=== PATIENT | male | born 1945 | race Caucasian/White ===

== ENCOUNTER → 2016-08-04 | Outpatient (CLI) | payer BC ==
[~2016-08-04] MED LIST: ALLO300T2 PO; ATOR10TA88 PO; ATV5 PO; CLOP1TAB15 PO; CRG125 PO; EFF/375 PO; MELA3TAB PO; PANT40TA PO
[2016-08-04 09:45] LABS: BASO % 0.5 %; BASO ABS # 0.03 K/uL (0-0.2); COMPLETE YES; EOS % 4.6 %; HEMATOCRIT 40.4 % (42-52); IG% 0.9 %; LYMPH % 24.2 %; LYMPH ABS # 1.42 K/uL (1.2-3.4); MEAN CELL VOLUME 92.4 fL (80-100); MEAN CORPUSCULAR HEMOGLOBIN 32.3 pg (25-34); MEAN CORPUSCULAR HGB CONC 34.9 g/dl (32-36); MEAN PLATELET VOLUME 9.7 fL (7.4-10.4); MONO % 11.4 %; NEUT % 58.4 %; PLATELET COUNT 142 K/uL (130-400); RED BLOOD COUNT 4.37 M/uL (4.7-6.1); WHITE BLOOD COUNT 5.87 K/uL (4.8-10.8)
[2016-08-04 10:01] LABS: ALT/SGPT 30 U/L (12-78); BLOOD UREA NITROGEN 20 mg/dl (7-18); BUN/CREATININE RATIO 24.4 (10-20); C-REACTIVE PROTEIN < 0.29 mg/dl (0-0.29); CALCIUM 8.2 mg/dl (8.5-10.1); CARBON DIOXIDE 24 mmol/L (21-32); CHLORIDE 110 mmol/L (98-107); CHOLESTEROL 156 mg/dl (0-200); GLUCOSE 119 mg/dl (70-99); POTASSIUM 3.8 mmol/L (3.5-5.1); SODIUM 144 mmol/L (136-145); TRIGLYCERIDES 244 mg/dl (0-150); VERY LOW DENSITY LIPOPROT CALC 49 mg/dl
[2016-08-04 10:14] LABS: ESTIMATED AVERAGE GLUCOSE 111 mg/dl; HA1C FLAG Normal (Normal)
[2016-08-04 10:20] LABS: ALB/GLOB RATIO 0.9 (0.9-2); ALKALINE PHOSPHATASE 67 U/L (45-117); AST/SGOT 20 U/L (15-37); CHOLESTEROL/HDL RATIO 4.1; HDL CHOLESTEROL 38 mg/dl; LDL CHOLESTEROL CALCULATED 69 mg/dl
[2016-08-04 10:54] LABS: LYME DISEASE AB IGG NEG (NEG); LYME DISEASE AB IGM NEG (NEG)
--- NOTE | 2016-08-09 12:38 | CODING QUERY MEDICAL NECESSITY ---
SUPPORTING DIAGNOSIS NEEDED A supporting diagnosis is required for the test/procedure performed on this patient in order for us to be reimbursed by the patient's insurance. Please provide a supporting diagnosis for the following test/procedure listed below next to the test name along with your signature. *If there is no additional diagnosis for this patient that would support the following test/procedure please document that below next to the test/procedure. Test(s)/Procedure(s) that require a supporting diagnosis: * VITAMIN D 25-HYDROXY DIAGNOSIS: * VITAMIN B-12 LEVEL DIAGNOSIS: * FOLATE LEVEL DIAGNOSIS: * DOS: 08/04/16 Provider Signature: Date: Thank you Trisha Molina Health Information Management Once completed, please kindly fax back to [phone] For questions please call [phone]
== END | disposition home or self-care (01) ==
LOC: C.LAB 07:06
PROVIDERS: ATTEND Family Medicine
DX: R73.09 Other abnormal glucose (principal); R53.83 Other fatigue; D50.9 Iron deficiency anemia, unspecified; D51.9 Vitamin B12 deficiency anemia, unspecified; E55.9 Vitamin D deficiency, unspecified

== ENCOUNTER → 2017-02-10 | Outpatient (CLI) | payer BC ==
[2017-02-10 09:34] LABS: BASO % 0.7 %; BASO ABS # 0.05 K/uL (0-0.2); COMPLETE YES; EOS % 4.9 %; HEMATOCRIT 41.1 % (42-52); IG% 0.7 %; LYMPH % 19.1 %; LYMPH ABS # 1.29 K/uL (1.2-3.4); MEAN CELL VOLUME 94.3 fL (80-100); MEAN CORPUSCULAR HEMOGLOBIN 32.8 pg (25-34); MEAN CORPUSCULAR HGB CONC 34.8 g/dl (32-36); MEAN PLATELET VOLUME 9.8 fL (7.4-10.4); MONO % 10.2 %; NEUT % 64.4 %; PLATELET COUNT 152 K/uL (130-400); RED BLOOD COUNT 4.36 M/uL (4.7-6.1); WHITE BLOOD COUNT 6.77 K/uL (4.8-10.8)
[2017-02-10 09:52] LABS: ESTIMATED AVERAGE GLUCOSE 117 mg/dl; HA1C FLAG Normal (Normal)
[2017-02-10 10:02] LABS: ALT/SGPT 49 U/L (12-78); BLOOD UREA NITROGEN 17 mg/dl (7-18); CALCIUM 8.7 mg/dl (8.5-10.1); CARBON DIOXIDE 29 mmol/L (21-32); CHLORIDE 107 mmol/L (98-107); CHOLESTEROL 161 mg/dl (0-200); CREATININE 0.87 mg/dl (0.60-1.40); GLUCOSE 159 mg/dl (70-99); SODIUM 141 mmol/L (136-145); TRIGLYCERIDES 142 mg/dl (0-150); VERY LOW DENSITY LIPOPROT CALC 28 mg/dl
[2017-02-10 10:10] LABS: ALKALINE PHOSPHATASE 72 U/L (45-117); AST/SGOT 29 U/L (15-37); CHOLESTEROL/HDL RATIO 3.5; HDL CHOLESTEROL 46 mg/dl; LDL CHOLESTEROL CALCULATED 87 mg/dl; PHOSPHORUS 3.3 mg/dl (2.5-4.9)
[2017-02-13 14:39] LABS: C-REACTIVE PROT HIGHSEN 1.7 MG/L
--- NOTE | 2017-02-23 13:14 | CODING QUERY MEDICAL NECESSITY ---
CQSUPPORTING DIAGNOSIS NEEDED A supporting diagnosis is required for the test/procedure performed on this patient in order for us to be reimbursed by the patient's insurance. Please provide a supporting diagnosis for the following test/procedure listed below next to the test name along with your signature. *If there is no additional diagnosis for this patient that would support the following test/procedure please document that below next to the test/procedure. Test(s)/Procedure(s) that require a supporting diagnosis: DOS 02/10/17 C-REACTIVE PROTEIN HIGH SENSITIVITY TESTING THYROID TESTS Provider Signature: Date: Thank you Celeste Owens Health Information Management Once completed, please kindly fax back to [phone] For questions please call [phone]
== END | disposition home or self-care (01) ==
LOC: C.LAB 07:52
PROVIDERS: ATTEND Family Medicine
DX: R73.09 Other abnormal glucose (principal); E55.9 Vitamin D deficiency, unspecified; D51.9 Vitamin B12 deficiency anemia, unspecified; N40.0 Benign prostatic hyperplasia without lower urinary tract symptoms; I65.29 Occlusion and stenosis of unspecified carotid artery; R53.83 Other fatigue; I35.1 Nonrheumatic aortic (valve) insufficiency

== ENCOUNTER → 2017-08-10 | Outpatient (CLI) | payer BC ==
[~2017-08-10] MED LIST changes: +ATOR10TA82 PO; -ATOR10TA88 PO
[2017-08-10 09:33] LABS: BASO % 0.6 %; BASO ABS # 0.05 K/uL (0-0.2); EOS ABS # 0.32 K/uL (0-0.5); HEMATOCRIT 43.1 % (42-52); HEMOGLOBIN 15.2 g/dL (14.0-18.0); IG# 0.05 K/uL (0.00-0.02); LYMPH % 18.6 %; LYMPH ABS # 1.48 K/uL (1.2-3.4); MEAN CELL VOLUME 93.1 fL (80-100); MEAN CORPUSCULAR HEMOGLOBIN 32.8 pg (25-34); MEAN CORPUSCULAR HGB CONC 35.3 g/dl (32-36); MEAN PLATELET VOLUME 9.9 fL (7.4-10.4); MONO % 9.2 %; MONO ABS # 0.73 K/uL (0.11-0.59); NEUT ABS # 5.31 K/uL (1.4-6.5); PLATELET COUNT 191 K/uL (130-400); RED CELL DISTRIBUTION WIDTH CV 12.1 % (11.5-14.5); RED CELL DISTRIBUTION WIDTH SD 40.9 fL (36.4-46.3); WHITE BLOOD COUNT 7.94 K/uL (4.8-10.8)
[2017-08-10 09:59] LABS: ALBUMIN 4.2 gm/dl (3.4-5.0); ALKALINE PHOSPHATASE 73 U/L (45-117); ALT/SGPT 58 U/L (12-78); AST/SGOT 37 U/L (15-37); BLOOD UREA NITROGEN 23 mg/dl (7-18); CARBON DIOXIDE 27 mmol/L (21-32); CHOLESTEROL 151 mg/dl (0-200); CREATININE 0.99 mg/dl (0.60-1.40); GLUCOSE 136 mg/dl (70-99); SODIUM 139 mmol/L (136-145); TOTAL PROTEIN 7.4 gm/dl (6.4-8.2); TRANSFERRIN 234 mg/dl (200-360); URIC ACID 4.5 mg/dl (2.6-7.2)
[2017-08-10 10:13] LABS: LDL CHOLESTEROL CALCULATED 89 mg/dl
[2017-08-10 10:52] LABS: HEMOGLOBIN A1C 5.7 % (4.5-5.6)
== END | disposition home or self-care (01) ==
LOC: C.LAB 07:21
PROVIDERS: ATTEND Family Medicine
DX: E88.81 Metabolic syndrome and other insulin resistance (principal); E55.9 Vitamin D deficiency, unspecified; D51.9 Vitamin B12 deficiency anemia, unspecified; E78.9 Disorder of lipoprotein metabolism, unspecified; R53.83 Other fatigue

== ENCOUNTER → 2017-08-18 | Outpatient (CLI) | payer BC ==
--- NOTE | 2017-08-18 13:25 | DIAGNOSTIC IMAGING REPORT ---
CAROTID DOPPLER NECK ART CLINICAL HISTORY: 72 years-old Male with CAROTID ARTERY DISEASE. COMPARISON: Carotid Doppler study 04/18/2013 TECHNIQUE: Multiple real time sonographic images of the carotid bifurcations were obtained assessing ferrer scale, color Doppler and spectral wave form appearance FINDINGS: Blood pressure on the right measures 125/70. Blood pressure on the left measures 121/70. RIGHT INTERNAL CAROTID: The peak systolic velocity measured 45 cm/sec. The end diastolic velocity measured 13 cm/sec. The ICA to CCA ratio measured 1.2 which correlates with a stenosis of 0-50%. Mild mixed plaquing of the right carotid bulb. LEFT INTERNAL CAROTID: The peak systolic velocity measured 82 cm/sec. The end diastolic velocity measured 30 cm/sec. The ICA to CCA ratio measured 0.8 which correlates with a stenosis of 0-50%. Mild atherosclerosis of the left carotid bulb. There is normal antegrade vertebral flow bilaterally. IMPRESSION: 1. No hemodynamically significant stenosis. 2. Normal antegrade vertebral flow bilaterally. The above report was generated using voice recognition software. It may contain grammatical, syntax or spelling errors. Electronically signed by: Ean Larkin M.D. 08/18/2017 1:24 PM Dictated Date/Time: 08/18/2017 1:16 PM
== END | disposition home or self-care (01) ==
LOC: C.ULTR 11:59
PROVIDERS: ATTEND Family Medicine
DX: I65.29 Occlusion and stenosis of unspecified carotid artery (principal)

== ENCOUNTER 2019-05-18 02:44 | Inpatient (IN) ==
[2019-05-18] MEDS ORDERED: DICYCLOMINE HCL 10 MG/ML 2 ML AMP/VIAL IM ONE (03:13)
[2019-05-18] MEDS ORDERED: GI COCKTAIL ED USE PO ONE (03:13)
[2019-05-18 03:53] LABS: Basophils # (auto) 0.02 K/uL (0-0.2); Basophils % (auto) 0.2 %; Eosinophils # (auto) 0.32 K/uL (0-0.5); Eosinophils % (auto) 2.5 %; Hematocrit (blood only) 42.6 % (42-52); Hemoglobin 14.9 g/dL (14.0-18.0); Immature Granulocytes # (auto) 0.06 K/uL (0.00-0.02); Immature Granulocytes % (auto) 0.5 %; Lymphocytes # (auto) 1.12 K/uL (1.2-3.4); Lymphocytes % (auto) 8.7 %; Mean Corpuscular Hemoglobin 32.4 pg (25-34); Mean Corpuscular Volume 92.6 fL (80-100); Mean Platelet Volume 10.2 fL (7.4-10.4); Monocytes # (auto) 0.88 K/uL (0.11-0.59); Monocytes % (auto) 6.8 %; Neutrophils # (auto) 10.54 K/uL (1.4-6.5); Neutrophils % (auto) 81.3 %; Platelet Count 169 K/uL (130-400); RDW Coefficient of Variation 12.6 % (11.5-14.5); RDW Standard Deviation 42.6 fL (36.4-46.3); White Blood Count 12.94 K/uL (4.8-10.8)
--- NOTE | 2019-05-18 03:55 | Emergency Department Note ---
History of Present Illness General Chief Complaint: Abdominal Pain Stated Complaint: ABD PAIN LAST 4 HOURS, BLOATING History of Present Illness Maximum Pain Intensity: 7 This 73-year-old presents to the ER complaining of upper abdominal discomfort Location: Upper abdomen Quality: Uncomfortable Severity: Moderate Duration: Started tonight Timing: Started around 8 PM Context: Patient was concerned and came in Modifying factors: better with nothing; worse with activity Patient states he had a chicken steak for dinner and an hour or so later he developed the symptoms with 2 alcoholic drinks. No prior abdominal surgeries. He has moved his bowels today. Patient denies chest pain, dyspnea, fever, chills, vomiting, diarrhea. Patient states he does not really drink alcohol anymore. He states he used to drink heavily. No history of pancreatitis. Home Medications Home Medications Medication Instructions Recorded Confirmed Type allopurinol 300 mg tablet 300 mg PO DAILY #30 tab 01/10/19 05/18/19 Rx atorvastatin 10 mg tablet 10 mg PO DAILY #90 tab 01/10/19 05/18/19 Rx carvedilol 25 mg tablet 25 mg PO BID #60 tab 01/10/19 05/18/19 Rx clopidogrel 75 mg tablet 75 mg PO DAILY #30 tab 01/10/19 05/18/19 Rx finasteride 5 mg tablet 5 mg PO DAILY #30 tab 01/10/19 05/18/19 Rx lorazepam 0.5 mg tablet 0.5 mg PO Q8H PRN #30 tab 01/10/19 05/18/19 Rx losartan 25 mg tablet 25 mg PO DAILY #30 tab 01/10/19 05/18/19 Rx melatonin 3 mg capsule 3 mg PO HS PRN 01/10/19 05/18/19 History omeprazole 40 mg capsule,delayed 40 mg PO BID cap 01/10/19 05/18/19 History release tamsulosin 0.4 mg capsule 0.4 mg PO DAILY 01/10/19 05/18/19 History venlafaxine 37.5 mg 37.5 mg PO DAILY 01/10/19 05/18/19 History capsule,extended release 24 hr Allergies Allergy/AdvReac Type Severity Reaction Status Date / Time No Known Allergies Allergy Unverified 05/18/19 04:13 Past Med/Surg History Social History Preferred Language: Citizen Of [place] Feels Safe at Home: Yes Smoking Status: Never smoker Review of Systems A total of 10 systems reviewed and were otherwise negative Physical Exam Vital Signs: Vital Signs - 24 hr 05/18/19 02:48 05/18/19 04:29 Temperature 36.6 C Temperature Source Oral Pulse Rate 70 70 Pulse Rate from Sp O2 Sensor 70 Pulse Rhythm Regular Pulse Strength Normal Respiratory Rate 20 23 Respiratory Effort / Characteristics Non-Labored Sponta neous Respiratory Depth Normal Respiratory Patter n Regular Blood Pressure 176/82 H 161/79 H Blood Pressure Poornima n 113 113 Blood Pressure Pos ition Sitting Pulse Oximetry 97 95 Oxygen Delivery Me thod Room Air Room Air Sepsis Recent Feve r Within 48 Hours No Sepsis Action Take n by Nursing No Action Required Physical Exam: VITALS: Vitals are noted on the nurse's note and reviewed by myself. Vital signs stable. GENERAL: Pleasant male, in no acute distress, nondiaphoretic, well-developed well-nourished. SKIN: Capillary reflex less than 2 seconds. HEENT: Normocephalic. PERRLA. EOMI. Nares patent. Mucous membranes moist. Neck is supple without nuchal rigidity. HEART: Regular rate and rhythm LUNGS: Clear to auscultation bilaterally without wheezes, rales or rhonchi. No retractions or accessory muscle use. ABDOMEN: Positive bowel sounds x 4. Normal tympanic percussion. Soft, tender to palpation upper abdomen, without masses or organomegaly. José sign negative. No guarding or rebound tenderness. No CVA tenderness MUSCULOSKELETAL: No gross musculoskeletal defects. NEURO: Patient was alert and oriented to person place and time. Normal sensation to light and sharp touch. No focal neurological deficits. Course Administered Medications Ioversol (Optiray 320 100ml) 93 ml IV ONCE PRN PRN Reason: Interaction Checking Stop: 05/22/19 04:17 Last Admin: 05/18/19 04:19 Dose: 93 ml Documented by: [id number] Discontinued Medications Al Hydrox/Mg Hydrox/Simethicone () 1 dose PO ONE ONE Stop: 05/18/19 03:14 Last Admin: 05/18/19 04:01 Dose: 1 dose Documented by: [id number] Dicyclomine HCl (Bentyl) 20 mg IM NOW ONE Stop: 05/18/19 03:14 Last Admin: 05/18/19 04:01 Dose: 20 mg Documented by: [id number] Morphine Sulfate (Morphine Sulfate) 4 mg IV NOW STA Stop: 05/18/19 04:29 Last Admin: 05/18/19 04:58 Dose: 4 mg Documented by: [id number] Ondansetron HCl (Zofran) 4 mg IV NOW STA Stop: 05/18/19 04:29 Last Admin: 05/18/19 04:58 Dose: 4 mg Documented by: [id number] Medical Decision Making Medical Records Attestation: I reviewed the patient's medical records. Home Medications Current Medication List: was personally reviewed by me Laboratory Data Attestation: I reviewed the patient's lab results. Result diagrams: 05/18/19 03:38 05/18/19 03:38 Lab Results 05/18/19 05/18/19 05/18/19 Range/Units 03:38 03:38 03:50 WBC 12.94 H (4.8-10.8) K/uL RBC 4.60 L (4.7-6.1) M/uL Hgb 14.9 (14.0-18.0) g/dL POC Hgb 14.3 (14.0-18.0) g/dl Hct 42.6 (42-52) % POC Hct 42 (42-52) % MCV 92.6 (80-100) fL MCH 32.4 (25-34) pg MCHC 35.0 (32-36) g/dL RDW Std Deviation 42.6 (36.4-46.3) fL RDW Coeff of Naa 12.6 (11.5-14.5) % Plt Count 169 (130-400) K/uL MPV 10.2 (7.4-10.4) fL Immature Gran % (Auto) 0.5 % Neut % (Auto) 81.3 % Lymph % (Auto) 8.7 % Hendricks % (Auto) 6.8 % Eos % (Auto) 2.5 % Baso % (Auto) 0.2 % Immature Gran # (Auto) 0.06 H (0.00-0.02) K/uL Neut # (Auto) 10.54 H (1.4-6.5) K/uL Lymph # (Auto) 1.12 L (1.2-3.4) K/uL Hendricks # (Auto) 0.88 H (0.11-0.59) K/uL Eos # (Auto) 0.32 (0-0.5) K/uL Baso # (Auto) 0.02 (0-0.2) K/uL POC Sodium 138 (135-144) mEq/L Sodium 136 (136-145) mmol/L POC Potassium 5.0 (3.3-5.0) mEq/L Potassium (3.5-5.1) mmol/L POC Chloride 103 (101-112) mEq/L Chloride 106 (98-107) mmol/L Carbon Dioxide 28 (21-32) mmol/L POC Total CO2 30 (24-31) mEq/l Anion Gap 2.0 L (3-11) POC Anion Gap 11.0 L (16-25) mmol/L POC BUN 18 (7-18) mg/dl BUN 14 (7-18) mg/dl Creatinine 0.85 (0.6-1.4) mg/dl POC Creatinine 0.7 (0.6-1.3) mg/dl Est Cr Clr Drug Dosing 82.0 ml/min Est GFR ( Amer) 100.2 Est GFR (Non-Af Amer) 86.4 BUN/Creatinine Ratio 16.3 (10-20) Glucose 134 H (70-99) mg/dl POC Glucose (other) 141 H (70-99) mg/dl Calcium 9.0 (8.5-10.1) mg/dl POC Ioniz Calcium [place] 1.14 (1.12-1.32) mmol/l Total Bilirubin 0.4 (0.2-1) mg/dl AST (15-37) U/L ALT 24 (12-78) U/L Alkaline Phosphatase 79 (45-117) U/L Troponin I < 0.015 (0-0.045) ng/ml Total Protein 7.7 (6.4-8.2) gm/dl Albumin 3.7 (3.4-5.0) gm/dl Globulin 4.0 (2.5-4.0) gm/dl Albumin/Globulin Ratio 0.9 (0.9-2) Lipase 6222 H (73-393) U/L Imaging Data Attestation: I personally reviewed and interpreted this imaging study as follows: Blood Pressure Blood Pressure Findings: Elevated blood pressure Blood Pressure Disposition: Referred to patients primary care provider MDM Narrative Prior records/ancillary studies reviewed. Triage Nursing notes reviewed. Additional history obtained from family. The patient's history was concerning for abdominal pain. Differential diagnosis: Etiologies such as appendicitis, diverticulitis, PUD, biliary pathology, UTI, pancreatitis, obstruction, mesenteric ischemia, aortic pathology, infections, inflammatory bowel disease, renal colic, as well as others were entertained. Physical examination findings: As above. ER treatment provided: GI cocktail, IV fluids, morphine, Zofran On reassessment the patient felt better. Diagnostics interpreted by me: ECG: Ordered for upper abdominal pain EKG: Normal sinus, T wave inversions in anterior lateral leads, rate of 69, EKG compared to prior EKG from 2015 with no acute changes noted. Impression normal sinus rhythm with chronic T wave inversions in the anterolateral leads unchanged interpreted by myself I think arrhythmia is unlikely. EKG shows normal sinus rhythm with no interval abnormalities such as QT prolongation or WPW. There are no findings to suggest Brugada syndrome. Cardiac monitoring in the emergency department reveals no tachycardic or bradycardic dysrhythmia. Hypertrophic cardiomyopathy was considered but there are no clear historical elements pointing toward this. EKG is not suggestive. The QRS voltage is not extremely large and there are no suggestive Q waves. The labs revealed lipase of 6200, negative troponin Leukocytosis Stable creatinine Imaging studies: Chest x-ray with no acute consolidation, pneumothorax or free air per my interpretation CT ABDOMEN & PELVIS With Contrast: There is fat stranding along the body and tail of the pancreas consistent with acute pancreatitis. No pseudocyst or abscess is seen. There is fatty infiltration of the liver. No focal liver lesion is seen. There is diverticulosis of the lower left and sigmoid colon. No signs of acute diverticulitis. There is constipation with 6.1 cm of stool in the cecum and right colon. Radiologist: Sebastian Koch MD Consultation: A consultation was placed with the hospitalist, Dr. Koch. The case was discussed and diagnostics were reviewed. The patient was evaluated in the ER for further treatment. Exam and history seem consistent with pancreatitis. Medicine was consulted. Patient will be admitted. Patient did finally admit that he had 2-3 bottles of wine last night with his . This most likely contribute to his pancreatitis. By the evaluation outlined above emergent etiologies such as appendicitis, di verticulitis, PUD, biliary pathology, UTI, obstruction, mesenteric ischemia, aortic pathology, inflammatory bowel disease, renal colic, as well as others were deemed relatively unlikely. The pt informed about the findings as listed above. All questions were answered and pleased with the treatment. Case reviewed with my attending The chart was completed utilizing [employer] Speech voice recognition software. Grammatical errors, random word insertions, pronoun errors, and incomplete sentences are an occassional consequence of this system due to software limitations, ambient noise, and hardware issues. Any formal questions or concerns about the content, text, or information contained within the body of this dictation should be directly addressed to the physician product safety technical assistant for clarification. Impression & Plan Acute pancreatitis Discharge Plan Visit Data Chief Complaint: Abdominal Pain Stated Complaint: ABD PAIN LAST 4 HOURS, BLOATING ED Provider: June Jimenez ED Midlevel Provider: Monica Banerjee Discharge Problem: Acute pancreatitis Patient Disposition: Being Evaluated by Hospitalist Condition: Fair Forms Stand Alone Forms: Call Back Authorization, [facility] Prescriptions Prescriptions: No Action lorazepam [Ativan] 0.5 mg tablet 0.5 mg PO Q8H PRN (Reason: anxiety) Qty: 30 RF: 0 finasteride 5 mg tablet 5 mg PO DAILY Qty: 30 RF: 2 allopurinol 300 mg tablet 300 mg PO DAILY Qty: 30 RF: 2 carvedilol 25 mg tablet 25 mg PO BID Qty: 60 RF: 2 losartan 25 mg tablet 25 mg PO DAILY Qty: 30 RF: 2 tamsulosin 0.4 mg capsule 0.4 mg PO DAILY RF: 0 clopidogrel 75 mg tablet 75 mg PO DAILY Qty: 30 RF: 2 venlafaxine [Effexor XR] 37.5 mg capsule,extended release 24hr 37.5 mg PO DAILY RF: 0 melatonin 3 mg capsule 3 mg PO HS PRN (Reason: Sleep) RF: 0 omeprazole 40 mg capsule,delayed release(DR/EC) 40 mg PO BID RF: 0 atorvastatin 10 mg tablet 10 mg PO DAILY Qty: 90 RF: 1 Referrals Referrals: Luc Fajardo MD [Primary Care Provider] - Discharge Problem: Acute pancreatitis Qualifiers: Pancreatitis type: unspecified pancreatitis type Acute pancreatitis complication: unspecified Qualified Code(s): K85.90 - Acute pancreatitis without necrosis or infection, unspecified
[2019-05-18 04:05] LABS: iSTAT Creatinine 0.7 mg/dl (0.6-1.3); iSTAT Hemoglobin 14.3 g/dl (14.0-18.0); iSTAT Ionized Calcium 1.14 mmol/l (1.12-1.32)
[2019-05-18] MEDS ORDERED: IOVERSOL 100ml IV PRN (04:18)
[2019-05-18 04:25] LABS: Alanine Aminotransferase 24 U/L (12-78); Albumin Globulin Ratio 0.9 (0.9-2); Albumin Level 3.7 gm/dl (3.4-5.0); Alkaline Phosphatase 79 U/L (45-117); BUN Creatinine Ratio 16.3 (10-20); Bilirubin,Total 0.4 mg/dl (0.2-1); Blood Urea Nitrogen 14 mg/dl (7-18); Carbon Dioxide 28 mmol/L (21-32); Chloride 106 mmol/L (98-107); Est GFR (African American) 100.2; Est GFR (Non-African American) 86.4; Glucose 134 mg/dl (70-99); Lipase 6222 U/L (73-393); Sodium 136 mmol/L (136-145); Total Protein 7.7 gm/dl (6.4-8.2); Troponin I < 0.015 ng/ml (0-0.045)
[2019-05-18] MEDS ORDERED: MoRPHine SULFATE 4 MG/ML 1 ML CARP\\VIAL IV STA ×2 (04:28→06:41)
[2019-05-18] MEDS ORDERED: ONDANSETRON INJ 2 MG/ML 2 ML VIAL IV STA (04:28)
--- NOTE | 2019-05-18 05:18 | Emergency Department Note ---
ED Visit Note I saw this patient in conjunction with Ita Banerjee PA-C. I agree with her decision making and treatment plan. This is a 73-year-old male patient who presents to the emergency department with epigastric pain. On physical exam, the patient has reproducible discomfort with palpation in the epigastrium. He admits to drinking a moderate amount of wine last night after having not had any alcohol for almost 6 months. This may be the trigger to this patient's episode of pancreatitis. Patient has a significant elevation to his lipase as well as findings of pancreatitis on CT scan. The patient will be further evaluated by the [facility] Hospitalist. . : Acute pancreatitis Qualifiers: Pancreatitis type: unspecified pancreatitis type Acute pancreatitis complication: unspecified Qualified Code(s): K85.90 - Acute pancreatitis without necrosis or infection, unspecified
--- NOTE | 2019-05-18 06:21 | History & Physical Report ---
Date of Service May 18, 2019 Assessment & Plan (1) Acute pancreatitis: Ronni is a 73-year-old male with past medical history of diabetes not on anti-glycemic's, hyperlipidemia, anxiety, increased alcohol intake and carotid stenosis status post surgical intervention who presents with acute pancreatitis. Acute pancreatitis 2/2 acute alcohol and triglyceride intake CT shows acute fat stranding consistent with pancreatitis, no signs of necrosis Afebrile, low suspicion for infection. Defer antibiotics at this time Lipase 6222. Do not trend. LR 200 cc/h x 3L Pain control with morphine 2-4 mg IV as needed Lipid panel pending Ionized calcium normal Chest pain On further review, epigastric in origin No history of NV Last echo shows EF 70% on 01/2019, concentric LVH, grade 1 diastolic dysfunction Troponin negative No acute EKG changes Low suspicion for cardiac involvement, follow clinically Hypertension Carvedilol 25 mg Losartan 25 mg History of carotid endarterectomy Continue atorvastatin 10 mg daily Continue Plavix 75 mg daily Patient reports history of type 2 diabetes mellitus Last A1c 5.9% No prior to admission anti-glycemic's No insulin at this time BMP daily Anxiety Continue venlafaxine 37.5 mg daily GERD Convert omeprazole to pantoprazole 40 mg daily DVT prophylaxis: Heparin 5000 units every 12 CODE STATUS: Full code. He would want his to be his decision maker if he were unable to make decisions for himself. Disposition: Med/surg (2) Diabetes: (3) H/O carotid endarterectomy: (4) Chest pain: (5) Hypercholesteremia: (6) Hyperglycemia without ketosis: (7) Hypertension: History of Present Illness Chief Complaint: Acute pancreatitis Primary Care Provider: Luc Fajardo MD Ronni is a 73-year-old male with a past medical history of carotid stenosis status post bilateral and arterectomy, diabetes mellitus, hyperlipidemia, anxiety, and hypertension who presents with left upper quadrant pain consistent with acute pancreatitis. Ronni reports he was in his usual state of health until last night when he developed left upper quadrant pain with some radiation to his epigastrium. He reports that he had history of high alcohol intake, 3-4 drinks per night every day of the week up until stopping drinking 6 months ago. He reports he did not and has never had any signs of withdrawal including seizures, tremors, or hallucinations and was able to remain sober for the last 6 months without issue. He reports he went out this weekend with some friends and had a couple of bottles of wine, and then had left over [place] cheese sticks last night prior to the onset of his symptoms. He has had some nausea, but no vomiting. Denies diarrhea or constipation. He has not had fevers, chills, sweats. He denies shortness of breath. Endorses epigastrium pain, denies chest pain. He has no prior history of the symptoms. He has never had pancreatitis before. Medical history: As above, reviewed in chart. Denies history of gout and emphysema which were noted on his problem list. Surgical history: Bilateral carotid endarterectomy, reviewed. Denies history of appendectomy or cholecystectomy. Family history: History of stomach cancer in his father, gallstones in his mother. Denies history of NV, stroke, thyroid disease. Social history: Lives in [place] with his . No former or current tobacco use. Alcohol use as above. Denies recreational drug use. CODE STATUS: Full code. He would want his to be his surrogate decision maker if you are unable to make decisions for himself. Allergies Allergy/AdvReac Type Severity Reaction Status Date / Time No Known Allergies Allergy Unverified 05/18/19 04:13 Home Medications Home Medications Medication Instructions Recorded Confirmed Type allopurinol 300 mg tablet 300 mg PO DAILY #30 tab 01/10/19 05/18/19 Rx atorvastatin 10 mg tablet 10 mg PO DAILY #90 tab 01/10/19 05/18/19 Rx carvedilol 25 mg tablet 25 mg PO BID #60 tab 01/10/19 05/18/19 Rx clopidogrel 75 mg tablet 75 mg PO DAILY #30 tab 01/10/19 05/18/19 Rx finasteride 5 mg tablet 5 mg PO DAILY #30 tab 01/10/19 05/18/19 Rx lorazepam 0.5 mg tablet 0.5 mg PO Q8H PRN #30 tab 01/10/19 05/18/19 Rx losartan 25 mg tablet 25 mg PO DAILY #30 tab 01/10/19 05/18/19 Rx melatonin 3 mg capsule 3 mg PO HS PRN 01/10/19 05/18/19 History omeprazole 40 mg capsule,delayed 40 mg PO BID cap 08/15/19 12/21/19 History release tamsulosin 0.4 mg capsule 0.4 mg PO DAILY 01/10/19 05/18/19 History venlafaxine 37.5 mg 37.5 mg PO DAILY 01/10/19 05/18/19 History capsule,extended release 24 hr Past Med/Surg History Social History Preferred Language: Italian Feels Safe at Home: Yes Smoking Status: Never smoker Review of Systems Review of Systems: All systems reviewed & are unremarkable except as noted in HPI & below Physical Exam Physical Exam: General: A&Ox3. NAD. Cooperative. HEENT: Atraumatic, normocephalic. Pulm: CTAB A&P. -wheezes, -rales, -rhonchi. Symmetrical chest rise. No increase work of breathing. No respiratory distress. Cardiac: RRR, -mrg. Radial pulses intact and symmetrical. Abdominal: Softly distended. Tender to palpation in the left upper quadrant and epigastrium. No rebound tenderness. Nonrigid. No guarding. Tympanitic to percussion. Decreased bowel sounds. CN II: Visual velazquez are full to confrontation. Pupils are equal and react to light and accomidation. Visual acuity grossly intact. CN III, IV, : At primary gaze, there is no eye deviation. EoM intact without nystagmus. No visual field cuts. CN V: Facial sensation is intact to soft touch in all 3 divisions bilaterally. CN VII: No facial asymmetry, full strength to eyebrow raise, smile, eye close, and cheek puff. CN VII: Hearing is grossly intact. CN IX, X: Palate elevates symmetrically. Phonation is normal without dysarthria. CN XI: Head turning intact CN XII: Tongue protrudes midline. Sensory: Light touch, intact in upper and low extremities without deficit or asymmetry. Strength: RUE: Shoulder flexion/extension/internal rotation/external rotation, elbow flexion/extension, finger flexion/extension, yard attendant strength, interosseous 5/5 LUE: Shoulder flexion/extension/internal rotation/external rotation, elbow flexion/extension, finger flexion/extension, yard attendant strength, interosseous 5/5 RLE: Hip flexion, knee flexion/extension, ankle plantar flexion/dorsiflexion 5/5 LLE: Hip flexion, knee flexion/extension, ankle plantar flexion/dorsiflexion 5/5 Results & Data Vital Signs (Past 12 Hours) Vital Signs Temp Pulse Resp BP Pulse Ox 05/18/19 04:29 70 23 161/79 H 95 05/18/19 02:48 36.6 C 70 20 176/82 H 97 Supervising Physician Co-Signing Physician Notes Patient seen and examined, chart reviewed, case discussed with Dr. Coello and I agree with his assessment and plan as documented above. Briefly, patient is a 73-year-old male with history of hypertension, hyperlipidemia, anxiety presenting with acute pancreatitis. Inciting event presumably alcohol intake as patient drank fairly heavily prior to symptoms began. No prior history of pancreatitis. No medication changes On physical exam he is afebrile, hemodynamically stable, no acute distress Skinwarm, dry, intact HEENTnormocephalic/atraumatic, pupils equal round react to light, extraocular muscles intact, no jaundice or icterus, moist mucous membranes Heart+ S1/S2, regular, no murmurs/rubs/gallops LungsCTA anteriorly Abdomen+ bowel sounds, diminished throughout, soft, mildly distended with diffuse tenderness to palpation mostly in epigastric area Extremitieswarm, well-perfused, 2+ edema (chronic per patient and ) Labs and images reviewed. Significant for leukocytosis with WBC = 12.94, elevated lipase at 6222 CT abdomen with pancreatic inflammation Assessment/plan 73-year-old male presenting with acute pancreatitis Admit to medical floor, bowel rest, IV fluids, analgesic and antiemetics as needed Check lipid panel Repeat labs in a.m. Remainder of plan as above Resident Activity Tracking Resident Involvement: Resident Care Provided Care Provided: Adult Hospital Medicine (1) Acute pancreatitis Acute pancreatitis complication: unspecified Pancreatitis type: unspecified pancreatitis type Qualified Code(s): K85.90 - Acute pancreatitis without necrosis or infection, unspecified
[2019-05-18] MEDS ORDERED: PROMETHAZINE 12.5 MG/50.5 ML BAG IV STA (06:43)
--- NOTE | 2019-05-18 06:45 | Billing Data ---
Date of Service May 18, 2019 Coding Level of Care Code 22744 Initial Inpt Care Lvl 3
--- NOTE | 2019-05-18 06:58 | XRay Report ---
XR chest 1V portable CLINICAL HISTORY: 73 years-old Male presenting with Chest Pain. TECHNIQUE: Portable upright AP view of the chest was obtained. COMPARISON: 02/24/2009. FINDINGS: Cardiopericardial silhouette moderately enlarged as on prior exam. No focal opacity. No large effusio n or pneumothorax. Osseous structures normal. Upper abdomen normal. IMPRESSION: 1. Cardiomegaly. No other convincing evidence of acute cardiopulmonary disease. ACT 112: Negative or not required by law. Electronically signed by: Víctor Haji M.D. 05/18/2019 6:57 AM
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
[2019-05-18] MEDS ORDERED: ACETAMINOPHEN 325 MG TAB PO PRN (07:30)
[2019-05-18] MEDS ORDERED: LORazepam 0.5 MG TAB PO PRN (07:30)
[2019-05-18] MEDS ORDERED: MoRPHine SULFATE 4 MG/ML 1 ML CARP\\VIAL IV PRN (07:30)
[2019-05-18] MEDS ORDERED: ONDANSETRON INJ 2 MG/ML 2 ML VIAL IV PRN (07:30)
[2019-05-18] MEDS ORDERED: MoRPHine SULFATE 2 MG/ML CARP IV PRN (07:30)
[2019-05-18 08:26] LABS: Chol HDL Ratio 3; Cholesterol 149 mg/dl (0-200); HDL Cholesterol 50 mg/dl; LDL Cholesterol Calculated 70 mg/dl; Triglycerides 143 mg/dl (0-150); VLDL Cholesterol 29 mg/dl
[2019-05-18] MEDS: LACTATED RINGER'S 1,000 ML IV SCH ×3 (09:34→19:42)
[2019-05-18] MEDS: PANTOprazole 40 MG TAB PO SCH (11:00)
[2019-05-18] MEDS: carvediloL 25 MG TAB PO SCH ×2 (11:00→19:46)
[2019-05-18] MEDS: FINASTERIDE 5 MG TAB PO SCH (11:01)
[2019-05-18] MEDS: LOSARTAN POTASSIUM 25 MG TAB PO SCH (11:01)
[2019-05-18] MEDS: ATORVASTATIN 10 MG TAB PO SCH (11:02)
[2019-05-18] MEDS: VENLAFAXINE HCL XR 37.5 MG CAPXR PO SCH (11:02)
[2019-05-18] MEDS: TAMSULOSIN HCL 0.4 MG CAP PO SCH (11:02)
[2019-05-18] MEDS: HEPARIN SOD 5,000 UNIT/0.5 ML VIAL SQ SCH ×2 (11:03→19:42)
[2019-05-18] MEDS: POLYETHYLENE (MIRALAX) 17 GM PACK PO SCH ×2 (11:03→19:47)
[2019-05-18] MEDS: CLOPIDOGREL BISULFATE 75 MG TAB PO SCH (11:03)
--- NOTE | 2019-05-18 13:50 | Hospitalist Progress Note ---
Date of Service May 18, 2019 Assessment & Plan (1) Acute pancreatitis: Mr. Matt is a 73-year-old male with past medical history of diabetes not on anti-glycemic's, hyperlipidemia, anxiety, increased alcohol intake and carotid stenosis status post surgical intervention who presents with acute epigastric and abdominal pain. Acute pancreatitis -Patient had noted consumption of 10oz of wine and a ruth cheesesteak prior to symptoms. CT shows acute fat stranding consistent with pancreatitis, no signs of necrosis Afebrile, low suspicion for infection. Defer antibiotics at this time. Lipase 6222. LR 200 cc/h x 3L Pain control with morphine 2-4 mg IV as needed Lipid panel - Triglyceride 143, Chol 149, LDL 70, VLDL 29, HDL 50 Ionized calcium normal -Patient NPO at admission, diet advanced to clear liquids in the afternoon and if tolerating full liquids in AM tomorrow. Chest pain On further review, epigastric in origin No history of MA Last echo shows EF 70% on 01/2019, concentric LVH, grade 1 diastolic dysfunction Troponin negative No acute EKG changes Low suspicion for cardiac involvement, follow clinically Hypertension Carvedilol 25 mg Losartan 25 mg History of carotid endarterectomy Continue atorvastatin 10 mg daily Continue Plavix 75 mg daily Patient reports history of type 2 diabetes mellitus Last A1c 5.9% No prior to admission anti-glycemic's No insulin at this time BMP daily Anxiety Continue venlafaxine 37.5 mg daily GERD -Holding home omeprazole. -Pantoprazole 40mg. Gout -Continue Allopurinol BPH -Continue home finesteride -Continue home Tamsulosin FEN/GI - Clear liquids, LR 200cc/hr x3L DVT prophylaxis: Heparin 5000 units every 12 CODE STATUS: Full code. He would want his to be his decision maker if he were unable to make decisions for himself. Disposition: Med/surg (2) Diabetes: (3) H/O carotid endarterectomy: (4) Chest pain: (5) Hypercholesteremia: (6) Hyperglycemia without ketosis: (7) Hypertension: (8) Gout: (9) BPH (benign prostatic hyperplasia): Supervising Physician Co-Signing Physician Notes Resident Physician Supervision Note: I independently interviewed and examined the patient and verified the barreto history and physical, reviewed labs and image studies, discussed the case with the resident Dr. Selene and agree with the findings and care plan. Subjective Patient seen at the bedside this AM shortly after transfer up from the ED. Patient noted that he was already starting to feel significantly better and stated that his abdominal pain was currently a 3/10 and that he was no longer nauseous. 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 He states that the other night was the first drink he'd had since quitting cold turkey and that he only had two 5oz glasses of wine at that time. He states he never had pancreatic problems in the past. Review of Systems Constitutional: + fatigue; no fever, no chills and no weakness Eyes: no eye pain and no photophobia Ear, Nose, Mouth, Throat: no ear pain, no tinnitus and no dizziness Respiratory: no cough, no chest congestion and no dyspnea Cardiovascular: no chest pain, no dyspnea and no dyspnea on exertion Gastrointestinal: + abdominal pain; no nausea and no vomiting Genitourinary: no dysuria Musculoskeletal: no back pain Integumentary: no rash Physical Exam Constitutional: WD/WN, vitals as above Eyes: PERRL, conjunctivae normal, anicteric sclerae ENMT: external ear and nose normal, oropharynx normal Respiratory: normal respiratory effort, lungs clear to auscultation Cardiovascular: Rate/Rhythm: regular rate and regular rhythm Heart Sounds: + murmur (2/6) Gastrointestinal (Abdomen): Inspection/Auscultation: abdomen normal to inspection and normal bowel sounds; abdomen not distended Percussion/Palpation: + abdomen tender (TTP RUQ and epigastrum ) and abdomen soft; no guarding and abdomen not rigid Musculoskeletal: no cyanosis or clubbing, extremities motor strength 5/5 Skin: no rashes, warm and dry Psychiatric: A+Ox3, euthymic affect Results & Data Vital Signs (Past 12 Hours) Vital Signs Temp Pulse Resp BP BP Pulse Ox 05/18/19 07:24 36.5 C 18 175/76 H 93 05/18/19 06:35 75 23 172/90 H 95 05/18/19 05:00 75 22 180/87 H 96 05/18/19 04:57 78 23 191/86 H 97 05/18/19 04:29 70 23 161/79 H 95 05/18/19 02:48 36.6 C 70 20 176/82 H 97 Laboratory Results Abnormal lab results 05/18/19 05/18/19 05/18/19 Range/Units 03:38 03:38 03:50 WBC 12.94 H (4.8-10.8) K/uL RBC 4.60 L (4.7-6.1) M/uL Immature Gran # (Auto) 0.06 H (0.00-0.02) K/uL Neut # (Auto) 10.54 H (1.4-6.5) K/uL Lymph # (Auto) 1.12 L (1.2-3.4) K/uL Alpine # (Auto) 0.88 H (0.11-0.59) K/uL Anion Gap 2.0 L (3-11) POC Anion Gap 11.0 L (16-25) mmol/L Glucose 134 H (70-99) mg/dl POC Glucose (other) 141 H (70-99) mg/dl Lipase 6222 H (73-393) U/L Medications Administered Current Inpatient Medications Acetaminophen (Tylenol) 650 mg PO Q4H PRN PRN Reason: pain/fever Stop: 06/17/19 07:29 Atorvastatin Calcium (Lipitor) 10 mg PO DAILY [facility] Stop: 06/17/19 08:59 Last Admin: 05/18/19 11:02 Dose: 10 mg Documented by: Carvedilol (Coreg) 25 mg PO BID AKILAH Stop: 06/17/19 08:59 Last Admin: 05/18/19 11:00 Dose: 25 mg Documented by: Clopidogrel Bisulfate (Plavix) 75 mg PO DAILY [facility] Stop: 06/17/19 08:59 Last Admin: 05/18/19 11:03 Dose: 75 mg Documented by: Finasteride (Proscar) 5 mg PO DAILY [facility] Stop: 06/17/19 08:59 Last Admin: 05/18/19 11:01 Dose: 5 mg Documented by: Heparin Sodium (Porcine) (Heparin Sodium (Porcine)) 5,000 units SQ Q12 AKILAH Stop: 06/17/19 08:59 Last Admin: 05/18/19 11:03 Dose: Not Given Documented by: Lactated Ringer's (Lr) 1,000 mls @ 200 mls/hr IV .Q5H AKILAH Stop: 05/18/19 22:29 Last Admin: 05/18/19 15:00 Dose: 200 mls/hr Documented by: Ioversol (Optiray 320 100ml) 93 ml IV ONCE PRN PRN Reason: Interaction Checking Stop: 05/22/19 04:17 Last Admin: 05/18/19 04:19 Dose: 93 ml Documented by: Lorazepam (Ativan) 0.5 mg PO Q8H PRN PRN Reason: anxiety Stop: 06/17/19 07:29 Losartan Potassium (Cozaar) 25 mg PO DAILY [facility] Stop: 06/17/19 08:59 Last Admin: 05/18/19 11:01 Dose: 25 mg Documented by: Morphine Sulfate (Morphine Sulfate) 2 mg IV Q2H PRN PRN Reason: Moderate Pain (4,5,6) Stop: 06/01/19 07:29 Morphine Sulfate (Morphine Sulfate) 4 mg IV Q2H PRN PRN Reason: Severe Pain (7,8,9,10) Stop: 06/01/19 07:29 Ondansetron HCl (Zofran) 4 mg IV Q6H PRN PRN Reason: Nausea Stop: 06/17/19 07:29 Pantoprazole Sodium (Protonix) 40 mg PO DAILY [facility] Stop: 06/17/19 08:59 Last Admin: 05/18/19 11:00 Dose: 40 mg Documented by: Polyethylene Glycol (Miralax Powder Packet) 17 gm PO BID [facility] Stop: 06/17/19 08:59 Last Admin: 05/18/19 11:03 Dose: 17 gm Documented by: Tamsulosin HCl (Flomax) 0.4 mg PO DAILY [facility] Stop: 06/17/19 08:59 Last Admin: 05/18/19 11:02 Dose: 0.4 mg Documented by: Venlafaxine HCl (Effexor Extended Release) 37.5 mg PO DAILY [facility] Stop: 06/17/19 08:59 Last Admin: 05/18/19 11:02 Dose: 37.5 mg Documented by: Resident Activity Tracking Resident Involvement: Resident Care Provided Care Provided: Adult Hospital Medicine (1) Acute pancreatitis Acute pancreatitis complication: unspecified Pancreatitis type: unspecified pancreatitis type Qualified Code(s): K85.90 - Acute pancreatitis without necrosis or infection, unspecified
[2019-05-19 07:35] LABS: BUN Creatinine Ratio 9.3 (10-20); Calcium 8.9 mg/dl (8.5-10.1); Creatinine Clr Calc Pharmacy 99.4 ml/min; Est GFR (African American) 108.5; Est GFR (Non-African American) 93.6; Potassium 3.7 mmol/L (3.5-5.1)
[2019-05-19] MEDS ORDERED: allopurinoL 300 MG TAB PO SCH (09:00)
[2019-05-19] MEDS: PANTOprazole 40 MG TAB PO SCH (09:12)
[2019-05-19] MEDS: CLOPIDOGREL BISULFATE 75 MG TAB PO SCH (09:12)
[2019-05-19] MEDS: FINASTERIDE 5 MG TAB PO SCH (09:13)
[2019-05-19] MEDS: LOSARTAN POTASSIUM 25 MG TAB PO SCH (09:13)
[2019-05-19] MEDS: TAMSULOSIN HCL 0.4 MG CAP PO SCH (09:13)
[2019-05-19] MEDS: VENLAFAXINE HCL XR 37.5 MG CAPXR PO SCH (09:13)
[2019-05-19] MEDS: POLYETHYLENE (MIRALAX) 17 GM PACK PO SCH (09:14)
[2019-05-19] MEDS: carvediloL 25 MG TAB PO SCH (09:14)
[2019-05-19] MEDS: ATORVASTATIN 10 MG TAB PO SCH (09:14)
[2019-05-19] MEDS: HEPARIN SOD 5,000 UNIT/0.5 ML VIAL SQ SCH (09:15)
--- NOTE | 2019-05-19 10:55 | Discharge Summary ---
Date of Service May 19, 2019 Admission HPI Per Admitting Provider Ronni is a 73-year-old male with a past medical history of carotid stenosis status post bilateral and arterectomy, diabetes mellitus, hyperlipidemia, anxiety, and hypertension who presents with left upper quadrant pain consistent with acute pancreatitis. Ronni reports he was in his usual state of health until last night when he developed left upper quadrant pain with some radiation to his epigastrium. He reports that he had history of high alcohol intake, 3-4 drinks per night every day of the week up until stopping drinking 6 months ago. He reports he did not and has never had any signs of withdrawal including seizures, tremors, or hallucinations and was able to remain sober for the last 6 months without issue. He reports he went out this weekend with some friends and had a couple of bottles of wine, and then had left over Ruth cheese sticks last night prior to the onset of his symptoms. He has had some nausea, but no vomiting. Denies diarrhea or constipation. He has not had fevers, chills, sweats. He denies shortness of breath. Endorses epigastrium pain, denies chest pain. He has no prior history of the symptoms. He has never had pancreatitis before. Medical history: As above, reviewed in chart. Denies history of gout and emphysema which were noted on his problem list. Surgical history: Bilateral carotid endarterectomy, reviewed. Denies history of appendectomy or cholecystectomy. Family history: History of stomach cancer in his father, gallstones in his mother. Denies history of NV, stroke, thyroid disease. Social history: Lives in [place] with his . No former or current tobacco use. Alcohol use as above. Denies recreational drug use. CODE STATUS: Full code. He would want his to be his surrogate decision maker if you are unable to make decisions for himself. Admission Exam Per Admitting Provider General: A&Ox3. NAD. Cooperative. HEENT: Atraumatic, normocephalic. Pulm: CTAB A&P. -wheezes, -rales, -rhonchi. Symmetrical chest rise. No increase work of breathing. No respiratory distress. Cardiac: RRR, -mrg. Radial pulses intact and symmetrical. Abdominal: Softly distended. Tender to palpation in the left upper quadrant and epigastrium. No rebound tenderness. Nonrigid. No guarding. Tympanitic to percussion. Decreased bowel sounds. CN II: Visual velazquez are full to confrontation. Pupils are equal and react to light and accomidation. Visual acuity grossly intact. CN III, IV, : At primary gaze, there is no eye deviation. EoM intact without nystagmus. No visual field cuts. CN V: Facial sensation is intact to soft touch in all 3 divisions bilaterally. CN VII: No facial asymmetry, full strength to eyebrow raise, smile, eye close, and cheek puff. CN VII: Hearing is grossly intact. CN IX, X: Palate elevates symmetrically. Phonation is normal without dysarthria. CN XI: Head turning intact CN XII: Tongue protrudes midline. Sensory: Light touch, intact in upper and low extremities without deficit or asymmetry. Strength: RUE: Shoulder flexion/extension/internal rotation/external rotation, elbow flexion/extension, finger flexion/extension, hvac technician residential strength, interosseous 5/5 LUE: Shoulder flexion/extension/internal rotation/external rotation, elbow flexion/extension, finger flexion/extension, hvac technician residential strength, interosseous 5/5 RLE: Hip flexion, knee flexion/extension, ankle plantar flexion/dorsiflexion 5/5 LLE: Hip flexion, knee flexion/extension, ankle plantar flexion/dorsiflexion 5/5 Principal Diagnosis Acute mild pancreatitis Discharge Exam Constitutional WD/WN, vitals as above Eyes PERRL, conjunctivae normal, anicteric sclerae ENMT external ear and nose normal, oropharynx normal Respiratory normal respiratory effort, lungs clear to auscultation Cardiovascular Rate/Rhythm: regular rate and regular rhythm Heart Sounds: + murmur (2/6) Gastrointestinal (Abdomen) Inspection/Auscultation: abdomen normal to inspection and normal bowel sounds; abdomen not distended Percussion/Palpation: + abdomen tender (Minimal TTP in RUQ and RLQ) and abdomen soft; no guarding and abdomen not rigid Musculoskeletal no cyanosis or clubbing, extremities motor strength 5/5 Skin no rashes, warm and dry Psychiatric A+Ox3, euthymic affect Discharge Data Allergies Allergy/AdvReac Type Severity Reaction Status Date / Time No Known Allergies Allergy Unverified 05/18/19 04:13 Consultations 05/18/19 05:10 ED Decision to Admit Stat Ordered Studies 05/18/19 03:13 CT abd pelvis IV con only Urgent Hospital Course (1) Acute pancreatitis: Mr. Matt is a 73-year-old male with past medical history of diabetes not on anti-glycemic's, hyperlipidemia, anxiety, increased alcohol intake and carotid stenosis status post surgical intervention who presents with acute epigastric and abdominal pain. Acute pancreatitis -Patient had noted consumption of 10oz of wine and a ruth cheesesteak prior to symptoms. CT showed acute fat stranding consistent with pancreatitis without signs of necrosis. As patient remained afebrile there was low suspicion for infection. Antibiotics were deferred during his stay. Lipase 6222 on admission. Lipid panel - Triglyceride 143, Chol 149, LDL 70, VLDL 29, HDL 50 Ionized calcium was normal. Patient was made NPO, LR 200 cc/h x 3L, Pain control with morphine 2-4 mg IV as needed were ordered. -Patients diet was then advanced to clear liquids followed by full liquids and a regular diet to which he tolerated well. -His pain had resolved and he was able to take PO as before and as such, was discharged home. Chest pain No history of NV Last echo shows EF 70% on 01/2019, concentric LVH, grade 1 diastolic dysfunction Troponin's drawn were negative No acute EKG changes were noted. Was found to be epigastric pain on further work up, resolved. Hypertension Continued home Carvedilol 25 mg Continued home Losartan 25 mg History of carotid endarterectomy Continued home atorvastatin 10 mg daily Continued home Plavix 75 mg daily Reported history of type 2 diabetes mellitus Last A1c 5.9% No prior to admission anti-glycemic's were noted. No new medications or insulin were initiated during his stay. Anxiety Continued home venlafaxine 37.5 mg daily GERD -Held home omeprazole, to be continued upon discharge. -Pantoprazole 40mg QD while inpatient. Gout -Continued home Allopurinol BPH -Continued home finesteride -Continued home Tamsulosin FEN/GI - Regular Diet DVT prophylaxis: Heparin 5000 units every 12 while inpatient. CODE STATUS: Full code. He would want his to be his decision maker if he were unable to make decisions for himself. Disposition: Discharge Home. (2) Diabetes: (3) H/O carotid endarterectomy: (4) Chest pain: (5) Hypercholesteremia: (6) Hyperglycemia without ketosis: (7) Hypertension: (8) Gout: (9) BPH (benign prostatic hyperplasia): Total Time Total Time Spent Total Time Spent (In Minutes): see attending attestation Discharge Plan Discharge Items Patient Disposition: Home - Self-Care Reason For Visit: ACUTE PANCREATITIS Discharge Diagnosis: Acute Mild Pancreatitis Condition on Discharge: Fair Activity: Resume your previous activity Non-emergency contact: Primary Care Provider Call non-emergency contact if: your symptoms worsen Follow-up/Referrals: Luc Fajardo MD [Primary Care Provider] - Diet: Carb Consistent or DM2 Addtl Attending Provider Instructions: Mr. Matt, Manish were seen and evaluated at [facility] from 05/18/19 to 05/19/19 for an initial chief complaint of abdominal left upper quadrant pain and epigastric pain. CT imaging of your abdomen revealed inflammation and swelling around your pancreas, consistent with the concern for Pancreatitis. Your lipase level (a lab marker for the pancreas) was also elevated at 6222, again consistent with a concern for Pancreatitis. You were put on a nothing per oral diet, your pain and nausea were controlled with medications, and you were well hydrated with IV fluids. Your diet was advanced and after tolerating regular food well, are being discharged. -Please follow up with your PCP within the next 1-2 weeks. -If your symptoms return or worsen, please call your PCP or return to the ED for evaluation. Pending Studies at Discharge: No Stand-Alone Forms: Call Back Authorization, My [facility], Smoking Cessation Medications and DC Order Prescriptions: Continued lorazepam [Ativan] 0.5 mg tablet 0.5 mg PO Q8H PRN (Reason: anxiety) Qty: 30 RF: 0 finasteride 5 mg tablet 5 mg PO DAILY Qty: 30 RF: 2 allopurinol 300 mg tablet 300 mg PO DAILY Qty: 30 RF: 2 carvedilol 25 mg tablet 25 mg PO BID Qty: 60 RF: 2 losartan 25 mg tablet 25 mg PO DAILY Qty: 30 RF: 2 tamsulosin 0.4 mg capsule 0.4 mg PO DAILY RF: 0 clopidogrel 75 mg tablet 75 mg PO DAILY Qty: 30 RF: 2 venlafaxine [Effexor XR] 37.5 mg capsule,extended release 24hr 37.5 mg PO DAILY RF: 0 melatonin 3 mg capsule 3 mg PO HS PRN (Reason: Sleep) RF: 0 omeprazole 40 mg capsule,delayed release(DR/EC) 40 mg PO BID RF: 0 atorvastatin 10 mg tablet 10 mg PO DAILY Qty: 90 RF: 1 Discharge Orders: Discharge Order (Routine); Ordered 05/19/19 Ordered By: Michael Morton Admission Data Admit Date/Time: 05/18/19 06:25 Attending Provider: Tracey Armendariz Admit Provider: Víctor Coello Primary Care Provider: Luc Fajardo Other Providers: Bethanie Koch Other Interventions: Discharge Summary Assessment (RN) Last Done: 05/19/19 13:00 DC Date/Time DO NOT enter until pt leaves facility: 05/19/19 13:59 Supervising Physician Co-Signing Physician Notes Resident Physician Supervision Note: I independently interviewed and examined the patient and verified the barreto history and physical, reviewed labs and image studies, discussed the case with the resident Dr. Morton and agree with the findings and care plan. Resident Activity Tracking Resident Involvement: Resident Care Provided Care Provided: Adult Hospital Medicine
== END 2019-05-19 13:59 | disposition home or self-care (01) | DRG 440 ==
LOC: ED 02:44 → SUATTDRO 06:25 → 2W 06:25

== ENCOUNTER 2020-01-08 16:50 | Inpatient (IN) ==
--- NOTE | 2020-01-08 18:19 | XRay Report ---
XR chest 1V portable HISTORY: 74 years-old Male chest pain . Atypical chest pain COMPARISON: Chest radiograph 05/18/2019 TECHNIQUE: Portable AP view of the chest FINDINGS: Unchanged cardiomegaly. No pneumothorax, pleural effusion, airspace consolidation or overt pulmonary edema. Bones of the chest appear grossly intact. IMPRESSION: No acute process. ACT 112: Negative or not required by law. The above report was generated using voice recognition software. It may contain grammatical, syntax o r spelling errors. Electronically signed by: Ean Larkin M.D. 01/08/2020 6:17 PM
[2020-01-08] MEDS ORDERED: SODIUM CHLORIDE 0.9% 1000ML 500 ML IV ONE (18:25)
--- NOTE | 2020-01-08 18:31 | Emergency Department Note ---
Impression & Plan Near syncope, Anemia, Weakness, Acute GI bleeding ED Provider Note NAME: HARRIS RUIZ AGE: 74 SEX: M : 1945 ARRIVES VIA: Walk-In INFORMANT: [Patient][family] ED PROVIDER(S): [Tato Maurice MD] CHIEF COMPLAINT: Chest pain, dizzy HISTORY OF PRESENT ILLNESS: The patient is a 74-year-old male who presents to the ED with lightheadedness, dizziness and upper sternal chest pain. The patient states that he had an endoscopy and colonoscopy yesterday. Things went well. Today, he began having the above-mentioned symptoms. He describes the chest pain as a 10/10 and the pain radiates to the back. No shortness of breath, no nausea or sweating. He has not suffered trauma. There has been no fever, chills, cough or congestion. The patient notices the lightheadedness and dizziness with standing and movement. He feels like he may faint. The patient recently has been told he was anemic. He has had some iron transfusions. He had the endoscopy and colonoscopy to look for potential bleeding source. REVIEW OF SYSTEMS: See HPI for pertinent positives and negatives. A total of ten systems were reviewed and were otherwise negative. PMHx/PSHx: See Below SOCIAL HISTORY: See Below. PHYSICAL EXAM: GENERAL: Patient is in no acute distress. HEENT: No acute trauma, normocephalic atraumatic, mucous membranes moist, no nasal congestion, no scleral icterus. NECK: No stridor, no adenopathy, no meningismus, trachea is midline. LUNGS: Clear to auscultation bilaterally, no wheeze, no rhonchi, breath sounds equal. HEART: 3/6 systolic murmur, regular rate and rhythm. Chest: Nontender chest wall. ABDOMEN: Soft, nontender, bowel sounds positive, no hernias, no peritonitis. EXTREMITIES: No cyanosis, moderate bilateral pedal edema, full range of motion of all the joints without pain or difficulty, no signs for acute trauma. NEUROLOGIC: Oriented x 3, no acute motor or sensory deficits, no focal weakness. SKIN: No rash, no jaundice, no diaphoresis. Pale. DIFFERENTIAL DIAGNOSIS: EMERGENCY DEPARTMENT COURSE/PROCEDURES: ECG: Indication was chest pain. The ECG shows a sinus rhythm with some PACs. The rate is 84. There are inverted T waves in the anterior and lateral leads. The QTc is 493. There is no ST elevation. Compared to an ECG from 18 May 2019, there is no significant change. Continuous Cardiac Monitoring: An order was placed for continuous cardiac monitoring. The monitor shows a rate of 92 with sinus rhythm with some PACs. Critical Care Note: I have personally spent greater than 38 minutes of critical care time in the direct management of this patient. This includes bedside care, interpretation of diagnostic studies, and testing, discussion with consultants, patient, and family members, and other required patient management activities. This 38 minutes is in excess of all separately billable procedures. MEDICAL DECISION MAKING: There is no leukocytosis. The patient is anemic with a hemoglobin just under 7. There is a normal platelet count. No concerning coagulopathy. No kidney failure or significant electrolyte abnormality. There is a mild elevation to the cardiac troponin, likely consistent with mismatch or possibly cardiac injury. ECG showed a sinus rhythm, there were some T wave changes but no change compared to previous ECGs. No liver enzyme elevation. No evidence for pancreatitis. Blood type was O+. Chest x-ray did not show any evidence for pneumonia, free air or pneumothorax. On exam, the patient seemed quite pale and his blood pressure was initially somewhat low. The patient was given IV saline, 500 cc. Because of the low hemoglobin, he was ordered for 2 units of packed red blood cells, 1 unit was to be transfused while here in the ED. The patient did sign consent for the transfusion. The patient is in need of a hospital stay. He is suffering from a GI bleed. He will need further resuscitation. He may require repeat endoscopy/colonoscopy. The patient is aware of his findings, his blood pressure is improved with our treatment. I did speak to case management. The on-call hospitalist was consulted. Past Med/Surg History Medical History Anemia IRON INFUSIONS X 2-11/2019 Anxiety Cardiac murmur FOR YRS-F/U DR REDDY Depression Diabetes mellitus, type 2 DIET MANAGED Enlarged prostate GERD (gastroesophageal reflux disease) UNDER CONTROL Hiatal hernia High cholesterol Hypertension Kidney stones SOBOE (shortness of breath on exertion) INACTIVE Surgical History H/O carotid endarterectomy R/L History of colonoscopy X 2-3 Hx of tonsillectomy Family History Father Liver cancer Social History Smoking Status: Unknown if ever smoked Second Hand Exposure: Yes (FATHER SMOKED); Hx Alcohol Use: No Hx Substance Use: No Preferred Language: British Communication Ability: Effective Farmworker Required: No Beliefs That Will Affect Care: None Current Living Situation: Spouse Other Information That Helps Us Care for You: No Feels Safe at Home: Yes Safety Concerns: Feels Safe At This Time Allergies Allergies Allergy/AdvReac Type Severity Reaction Status Date / Time No Known Allergies Allergy Verified 01/08/20 20:31 Home Meds Home Medications Medication Instructions Recorded Confirmed melatonin 3 mg capsule 3 mg PO HS 01/10/19 01/08/20 omeprazole 40 mg capsule,delayed 40 mg PO BID cap 01/10/19 01/08/20 release allopurinol [Zyloprim] 300 mg PO QAM 11/20/19 01/08/20 lorazepam [Ativan] 0.5 - 1 mg PO DAILY PRN 11/25/19 01/08/20 Multivitamin 50 Plus 1 tab PO QAM 01/02/20 01/08/20 atorvastatin 10 mg PO QAM 01/02/20 01/08/20 carvedilol 12.5 mg PO BID 01/02/20 01/08/20 cholecalciferol (vitamin D3) 25 mcg PO QAM 01/02/20 01/08/20 [Vitamin D3] clopidogrel 75 mg PO QAM 01/02/20 01/08/20 finasteride 5 mg PO QAM 01/02/20 01/08/20 losartan 25 mg PO QPM 01/02/20 01/08/20 saw palmetto 400 mg PO QAM 01/02/20 01/08/20 tamsulosin 0.4 mg PO HS 01/08/20 01/08/20 ursodiol 500 mg PO HS 01/08/20 01/08/20 venlafaxine 75 mg PO QAM 01/08/20 01/08/20 Results & Data (ED) Vital Signs Vital Signs - 24 hr 01/08/20 16:54 01/08/20 18:31 01/08/20 18:33 Temperature 36.8 C Temperature Source Oral Pulse Rate 73 82 79 Pulse Rate from SpO2 Sensor 70 77 Respiratory Rate 16 24 25 H Respiratory Effort / Characteristics Non-Labored Spontaneous Respiratory Depth Normal Blood Pressure 107/58 L 127/75 Blood Pressure Mean 74 92 Blood Pressure Position Sitting Pulse Oximetry 98 98 99 Oxygen Delivery Method Room Air Sepsis Recent Fever Within 48 Hours No Sepsis New/Unexplained Change in Mental Status No Sepsis Action Taken by Nursing No Action Required 01/08/20 19:00 01/08/20 19:01 01/08/20 19:19 Temperature Temperature Source Pulse Rate 85 84 85 Pulse Rate from SpO2 Sensor 81 84 82 Respiratory Rate 21 24 24 Respiratory Effort / Characteristics Respiratory Depth Blood Pressure 129/75 134/75 Blood Pressure Mean 97 107 Blood Pressure Position Pulse Oximetry 97 97 98 Oxygen Delivery Method Sepsis Recent Fever Within 48 Hours Sepsis New/Unexplained Change in Mental Status Sepsis Action Taken by Nursing 01/08/20 19:20 01/08/20 19:30 01/08/20 19:31 Temperature Temperature Source Pulse Rate 86 86 87 Pulse Rate from SpO2 Sensor 86 86 83 Respiratory Rate 23 22 23 Respiratory Effort / Characteristics Respiratory Depth Blood Pressure 139/70 Blood Pressure Mean 104 Blood Pressure Position Pulse Oximetry 99 98 99 Oxygen Delivery Method Sepsis Recent Fever Within 48 Hours Sepsis New/Unexplained Change in Mental Status Sepsis Action Taken by Nursing 01/08/20 19:45 01/08/20 20:00 01/08/20 20:01 Temperature Temperature Source Pulse Rate 87 82 85 Pulse Rate from SpO2 Sensor 87 83 80 Respiratory Rate 23 23 18 Respiratory Effort / Characteristics Respiratory Depth Blood Pressure 124/76 139/74 Blood Pressure Mean 81 111 Blood Pressure Position Pulse Oximetry 97 97 99 Oxygen Delivery Method Sepsis Recent Fever Within 48 Hours Sepsis New/Unexplained Change in Mental Status Sepsis Action Taken by [facility] Medications Current Medication List: was personally reviewed by me Laboratory Data Attestation: I reviewed the patient's lab results. Result diagrams: 01/08/20 21:25 01/08/20 18:20 Lab Results 01/08/20 01/08/20 01/08/20 Range/Units 18:20 18:20 18:20 WBC 9.48 (4.8-10.8) K/uL RBC 2.40 L (4.7-6.1) M/uL Hgb 6.8 L* (14.0-18.0) g/dL Hct 21.9 L (42-52) % MCV 91.3 (80-100) fL MCH 28.3 (25-34) pg MCHC 31.1 L (32-36) g/dL RDW Std Deviation 72.2 H (36.4-46.3) fL RDW Coeff of Naa 22.5 H (11.5-14.5) % Plt Count 190 (130-400) K/uL MPV 8.8 (7.4-10.4) fL Immature Gran % (Auto) 0.4 % Neut % (Auto) 76.4 % Lymph % (Auto) 13.0 % Todd % (Auto) 8.8 % Eos % (Auto) 1.2 % Baso % (Auto) 0.2 % Neut # (Auto) 7.25 H (1.4-6.5) K/uL Lymph # (Auto) 1.23 (1.2-3.4) K/uL Todd # (Auto) 0.83 H (0.11-0.59) K/uL Eos # (Auto) 0.11 (0-0.5) K/uL Baso # (Auto) 0.02 (0-0.2) K/uL Immature Gran # (Auto) 0.04 H (0.00-0.02) K/uL Absolute Nucleated RBC 0.06 H (0-0) K/uL Nucleated RBC % (auto) 0.7 % Polychromasia 1+ Hypochromasia Present Anisocytosis Present PT 10.3 (9.0-12.0) Seconds INR 1.0 (0.9-1.1) APTT 21.7 (21.0-31.0) Seconds PTT Ratio 0.8 Sodium 139 (136-145) mmol/L Potassium 3.9 (3.5-5.1) mmol/L Chloride 108 H (98-107) mmol/L Carbon Dioxide 27 (21-32) mmol/L Anion Gap 4.0 (3-11) BUN 17 (7-18) mg/dl Creatinine 0.93 (0.6-1.4) mg/dl Est Cr Clr Drug Dosing Not Reportable Est GFR ( Amer) 93.4 Est GFR (Non-Af Amer) 80.6 BUN/Creatinine Ratio 18.7 (10-20) Glucose 126 H (70-99) mg/dl Calcium 8.5 (8.5-10.1) mg/dl Magnesium 2.1 (1.8-2.4) mg/dl Total Bilirubin 0.3 (0.2-1) mg/dl AST 20 (15-37) U/L ALT 22 (12-78) U/L Alkaline Phosphatase 55 (45-117) U/L Troponin I 0.056 H* (0-0.045) ng/ml Total Protein 6.2 L (6.4-8.2) gm/dl Albumin 3.3 L (3.4-5.0) gm/dl Globulin 2.9 (2.5-4.0) gm/dl Albumin/Globulin Ratio 1.1 (0.9-2) Lipase 126 (73-393) U/L Blood Type Antibody Screen Crossmatch 01/08/20 01/08/20 Range/Units 18:20 18:49 WBC (4.8-10.8) K/uL RBC (4.7-6.1) M/uL Hgb (14.0-18.0) g/dL Hct (42-52) % MCV (80-100) fL MCH (25-34) pg MCHC (32-36) g/dL RDW Std Deviation (36.4-46.3) fL RDW Coeff of Naa (11.5-14.5) % Plt Count (130-400) K/uL MPV (7.4-10.4) fL Immature Gran % (Auto) % Neut % (Auto) % Lymph % (Auto) % Todd % (Auto) % Eos % (Auto) % Baso % (Auto) % Neut # (Auto) (1.4-6.5) K/uL Lymph # (Auto) (1.2-3.4) K/uL Todd # (Auto) (0.11-0.59) K/uL Eos # (Auto) (0-0.5) K/uL Baso # (Auto) (0-0.2) K/uL Immature Gran # (Auto) (0.00-0.02) K/uL Absolute Nucleated RBC (0-0) K/uL Nucleated RBC % (auto) % Polychromasia Hypochromasia Anisocytosis PT (9.0-12.0) Seconds INR (0.9-1.1) APTT (21.0-31.0) Seconds PTT Ratio Sodium (136-145) mmol/L Potassium (3.5-5.1) mmol/L Chloride (98-107) mmol/L Carbon Dioxide (21-32) mmol/L Anion Gap (3-11) BUN (7-18) mg/dl Creatinine (0.6-1.4) mg/dl Est Cr Clr Drug Dosing Est GFR ( Amer) Est GFR (Non-Af Amer) BUN/Creatinine Ratio (10-20) Glucose (70-99) mg/dl Calcium (8.5-10.1) mg/dl Magnesium Cancelled (1.8-2.4) mg/dl Total Bilirubin (0.2-1) mg/dl AST (15-37) U/L ALT (12-78) U/L Alkaline Phosphatase (45-117) U/L Troponin I Cancelled (0-0.045) ng/ml Total Protein (6.4-8.2) gm/dl Albumin (3.4-5.0) gm/dl Globulin (2.5-4.0) gm/dl Albumin/Globulin Ratio (0.9-2) Lipase Cancelled (73-393) U/L Blood Type O Positive Antibody Screen NEGATIVE Crossmatch See Detail Administered Medications Carvedilol (Carvedilol 12.5 Mg Tab) 12.5 mg PO BID AKILAH Stop: 02/07/20 20:59 Last Admin: 01/08/20 22:46 Dose: 12.5 mg Documented by: [id number] Pantoprazole Sodium 40 mg/ (Dextrose) 100 mls @ 20 mls/hr IV Q5H AKILAH Stop: 02/07/20 20:44 Last Admin: 01/08/20 22:03 Dose: 8 mg/hr, 20 mls/hr Documented by: [id number] Venlafaxine HCl (Venlafaxine Hcl Xr 37.5 Mg Capxr) 37.5 mg PO BID AKILAH Stop: 02/07/20 20:59 Last Admin: 01/08/20 22:46 Dose: 37.5 mg Documented by: [id number] Discontinued Medications Sodium Chloride (Nss 1000ml) 500 mls @ 999 mls/hr IV .Q31M ONE Stop: 01/08/20 18:55 Last Infusion: 01/08/20 19:00 Dose: 0 mls/hr Documented by: [id number] Admin: 01/08/20 18:28 Dose: 999 mls/hr Documented by: [id number] Pantoprazole Sodium (Protonix Bolus/Drip) 0 mls @ 1 mls/hr IV ONE STA Stop: 01/08/20 20:14 Last Admin: 01/08/20 20:13 Dose: 1 mls/hr Documented by: [id number] Pantoprazole Sodium 80 mg/ (Dextrose) 120 mls @ 400 mls/hr IV NOW ONE Stop: 01/08/20 20:38 Last Admin: 01/08/20 21:44 Dose: 400 mls/hr Documented by: [id number] Ioversol (Ioversol 100ml) 93 ml IV ONCE ONE Stop: 01/08/20 20:56 Last Admin: 01/08/20 20:55 Dose: 93 ml Documented by: [id number] Imaging Data Radiologist's Impression: XR chest 1V portable HISTORY: 74 years-old Male chest pain . Atypical chest pain COMPARISON: Chest radiograph 05/18/2019 TECHNIQUE: Portable AP view of the chest FINDINGS: Unchanged cardiomegaly. No pneumothorax, pleural effusion, airspace consolidation or overt pulmonary edema. Bones of the chest appear grossly intact. IMPRESSION: No acute process. Blood Pressure Blood Pressure Findings: Elevated blood pressure Blood Pressure Disposition: Referred to patients primary care provider Discharge Plan Visit Data Chief Complaint: Illness Stated Complaint: GI SCOPE YESTERDAY, DIZZY, FALLING OVER ED Provider: Tato Maurice Discharge Problem: Near syncope, Anemia, Weakness, Acute GI bleeding Patient Disposition: Admitted As Inpatient Condition: Fair Discharge Instructions Interventions: ED Discharge Assessment Last Done: 01/08/20 21:13 Discharge Problem: Anemia Qualifiers: Anemia type: unspecified type Qualified Code(s): D64.9 - Anemia, unspecified
[2020-01-08 18:46] LABS: Partial Thromboplastin Ratio 0.8; Partial Thromboplastin Time 21.7 Seconds (21.0-31.0); Prothrombin Time 10.3 Seconds (9.0-12.0)
[2020-01-08 18:55] LABS: Hematocrit (blood only) 21.9 % (42-52); Hemoglobin 6.8 g/dL (14.0-18.0); Mean Corpuscular Hemoglobin 28.3 pg (25-34); Mean Corpuscular Hgb Conc 31.1 g/dL (32-36); Mean Corpuscular Volume 91.3 fL (80-100); Mean Platelet Volume 8.8 fL (7.4-10.4); Nucleated RBC # (auto) 0.06 K/uL (0-0); Nucleated RBC % (auto) 0.7 %; Platelet Count 190 K/uL (130-400); RDW Coefficient of Variation 22.5 % (11.5-14.5); RDW Standard Deviation 72.2 fL (36.4-46.3); White Blood Count 9.48 K/uL (4.8-10.8)
[2020-01-08 18:56] LABS: Alanine Aminotransferase 22 U/L (12-78); Albumin Level 3.3 gm/dl (3.4-5.0); Aspartate Aminotransferase 20 U/L (15-37); BUN Creatinine Ratio 18.7 (10-20); Blood Urea Nitrogen 17 mg/dl (7-18); Calcium 8.5 mg/dl (8.5-10.1); Carbon Dioxide 27 mmol/L (21-32); Chloride 108 mmol/L (98-107); Est GFR (African American) 93.4; Est GFR (Non-African American) 80.6; Glucose 126 mg/dl (70-99); Lipase 126 U/L (73-393); Magnesium 2.1 mg/dl (1.8-2.4); Potassium 3.9 mmol/L (3.5-5.1); Sodium 139 mmol/L (136-145)
[2020-01-08] MEDS ORDERED: SODIUM CHLORIDE 0.9% 250 ML IV PRN ×2 (18:58→20:59)
[2020-01-08 19:02] LABS: Anisocytosis Present; Basophils # (auto) 0.02 K/uL (0-0.2); Basophils % (auto) 0.2 %; Eosinophils # (auto) 0.11 K/uL (0-0.5); Eosinophils % (auto) 1.2 %; Hypochromasia Present; Immature Granulocytes # (auto) 0.04 K/uL (0.00-0.02); Immature Granulocytes % (auto) 0.4 %; Lymphocytes # (auto) 1.23 K/uL (1.2-3.4); Monocytes # (auto) 0.83 K/uL (0.11-0.59); Monocytes % (auto) 8.8 %; Neutrophils # (auto) 7.25 K/uL (1.4-6.5); Neutrophils % (auto) 76.4 %; Polychromasia 1+
[2020-01-08 19:04] LABS: Albumin Globulin Ratio 1.1 (0.9-2); Alkaline Phosphatase 55 U/L (45-117); Bilirubin,Total 0.3 mg/dl (0.2-1); Globulin 2.9 gm/dl (2.5-4.0); Total Protein 6.2 gm/dl (6.4-8.2); Troponin I 0.056 ng/ml (0-0.045)
[2020-01-08] MEDS ORDERED: PANTOPRAZOLE BOLUS/DRIP 1 EA IV STA (20:13)
[2020-01-08] MEDS ORDERED: PANTOprazole 80 MG in DEXTROSE 5% 100 ML IV ONE (20:21)
--- NOTE | 2020-01-08 20:40 | History & Physical Report ---
Date of Service January 08, 2020 Assessment & Plan (1) Anemia: Ronni Matt is a 74yo M 2/2 GI [id number] M with a PMHx of anemia, GI bleed, HTN, HLD, T2DM, diverticulosis, and recent echo with EF > 70% and findings consistent with yptrophic ardiomypoathy who presents with sudden weakness and fatigue with a Hgb drop from las tnornaml ~3 weeks ago of 13 to 6.8. Acute blood loss anemia suspect 2/2 GIB -Patient with hypertrophic cardiomyopathy, last known normal hemoglobin 13.2 on 12/19 acutely decreased to 6.8 on admission Patient underwent EGD and colonoscopy 01/06 which showed blood/[id number] material in the descending colon, transverse colon, and a sending colon with no active bleeding noted. 2 small and large mouth diverticula were found. 2 sessile polyps were found, patient underwent polypectomy. - CT-Ab with IV contrast pending. 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 Pharmo contraindicated. FEN/GI: NPO, blood transfusing. Crystalloid bolus PRN, no IVFM as pRBC requirements currently unknown. Code: Full Dispo: PCU (2) Hypertension: (3) Hyperglycemia without ketosis: (4) Hypercholesteremia: (5) Hypertrophic cardiomyopathy: History of Present Illness Chief Complaint: Fatigue Primary Care Provider: Luc Fajardo MD Ronni Matt is a 74yo M 2/2 GI [id number] M with a PMHx of anemia, GI bleed, HTN, HLD, T2DM, diverticulosis, and recent echo with EF > 70% and findings consistent with hyptrophic ardiomypoathy who presents with sudden weakness and fatigue with a Hgb drop from last nornaml ~3 weeks ago of 13 to 6.8. Reports that he recently underwent a EGD/colonoscopy for GI bleeding and anemia which showed blood in the intestines, and 2 polyps which were removed. He did not have any active bleeding at time of the EGD/Elmo. He reports that he had had anemia in the month prior and had received 3 iron transfusions before being placed on oral iron. He developed a blood clot while taking IV iron, and was placed on apixaban. He was started on a Doac about November 26, and stopped taking it approximately 10 days ago. He reports his bowel movements have regularly been black, is not sure if this is from bleeding or from taking oral iron. Is not previously had shortness of breath, until the day of admission when he suddenly felt very weak and dizzy and 'wifty'. he reprots bilateral neck and clavicle pain which has NOT chagned in the last several months. Otherwise denies chest pain and shrotness of breath. He notes his home BP cuff could not read his blood pressure. No nausea, vomtiing. No focal weakness, but feels globally exhausted. Medical history: Reviewed Surgical history: Reviewed Medications: Reviewed Allergies: Reviewed Social: Endorses daily alcohol use of about 1-2 drinks, no alcohol in the last 2 weeks. Denies withdrawal, tremors or past seizures. Denies current or former tobacco use. Denies current former recreational drug use. Full code. Lives at home with his was present at bedside. Allergies Allergy/AdvReac Type Severity Reaction Status Date / Time No Known Allergies Allergy Verified 01/08/20 20:31 Home Medications Home Medications Medication Instructions Recorded Confirmed Type melatonin 3 mg capsule 3 mg PO HS 01/10/19 01/08/20 History omeprazole 40 mg capsule,delayed 40 mg PO BID cap 01/10/19 01/08/20 History release allopurinol [Zyloprim] 300 mg PO QAM 11/20/19 01/08/20 History lorazepam [Ativan] 0.5 - 1 mg PO DAILY PRN 11/25/19 01/08/20 History Multivitamin 50 Plus 1 tab PO QAM 01/02/20 01/08/20 History atorvastatin 10 mg PO QAM 01/02/20 01/08/20 History carvedilol 12.5 mg PO BID 01/02/20 01/08/20 History cholecalciferol (vitamin D3) 25 mcg PO QAM 01/02/20 01/08/20 History [Vitamin D3] clopidogrel 75 mg PO QAM 01/02/20 01/08/20 History finasteride 5 mg PO QAM 01/02/20 01/08/20 History losartan 25 mg PO QPM 01/02/20 01/08/20 History saw palmetto 400 mg PO QAM 01/02/20 01/08/20 History tamsulosin 0.4 mg PO HS 01/08/20 01/08/20 History ursodiol 500 mg PO HS 01/08/20 01/08/20 History venlafaxine 75 mg PO QAM 01/08/20 01/08/20 History Past Med/Surg History Medical History Anemia IRON INFUSIONS X 2-11/2019 Anxiety Cardiac murmur FOR YRS-F/U DR REDDY Depression Diabetes mellitus, type 2 DIET MANAGED Enlarged prostate GERD (gastroesophageal reflux disease) UNDER CONTROL Hiatal hernia High cholesterol Hypertension Kidney stones SOBOE (shortness of breath on exertion) INACTIVE Surgical History H/O carotid endarterectomy R/L History of colonoscopy X 2-3 Hx of tonsillectomy Family History Father Liver cancer Social History Smoking Status: Unknown if ever smoked Second Hand Exposure: Yes (FATHER SMOKED); Hx Alcohol Use: No Hx Substance Use: No Preferred Language: Italian Communication Ability: Effective Hospital Account Liaison Required: No Beliefs That Will Affect Care: None Current Living Situation: Spouse Feels Safe at Home: Yes Review of Systems Review of Systems: Constitutional:See HPI Eyes: Denies double vision, vision change, eye pain ENT: Denies ear pain, sore throat, sinus pain Cardiovascular: See HPI Respiratory: See HPI Gastrointestinal: See HPI Genitourinary: Denies pain with urination Musculoskeletal: Denies focal weakness, muscle aches/pain, joint aches/pain Integumentary:Denies rash, lesions, bruising Neurological: Denies headache, numbness, tingling, focal weakness Physical Exam Physical Exam: General: A&Ox3. NAD. Cooperative. Skin: Pale, pallor present HEENT: Atraumatic, normocephalic. Pulm: CTAB A&P. -wheezes, -rales, -rhonchi. Symmetrical chest rise. No increase work of breathing. No respiratory distress. Cardiac: RRR, -mrg. Radial pulses intact and symmetrical. Abdominal: Nontender, nondistended, soft. BS present. Extremities:Cool, dry. Sensation intact in distal extremities without asymmetry. Strength in distal extremities grossly intact without asymmetry. Results & Data Results & Data ([facility]) Vital Signs (Past 12 Hours) Vital Signs Temp Pulse Resp BP Pulse Ox 01/08/20 19:19 85 24 134/75 98 01/08/20 19:01 84 24 97 01/08/20 19:00 85 21 129/75 97 01/08/20 18:33 79 25 H 99 01/08/20 18:31 82 24 127/75 98 01/08/20 16:54 36.8 C 73 16 107/58 L 98 Code Status & VTE Plan VTE Prophylaxis Plan VTE Prophylaxis will be ordered: Yes Supervising Physician Co-Signing Physician Notes Attending addendum: I have physically seen this patient, have supervised the medical residents activities, and agree with the H&P unless as otherwise noted. Assessment and Plan: Acute blood loss anemia- Hemoglobin 6.8 upon admission, with most recent 13.2. EGD on 01/07/2020 showed fundic erythema and 1 gastric body polyp removal Colonoscopy on 01/07/20 suggested diverticular bleeding, blood noted in colon, also status post polypectomy x2. Consult gastroenterology. Receiving 2 units PRBCs at direction of ED. H&H every 4 hours Protonix bolus/drip per protocol. N.p.o. status Hypertrophic cardiomyopathy/hypertension- Echo on 07/29/2019 showed hypertrophic cardiomyopathy with ejection fraction greater than 70. Will target hemoglobin in the 10 range. Carvedilol and losartan being held due to relative hypotension Diabetes mellitus- N.p.o. for now Patient Accu-Cheks before meals and at bedtime with NovoLog coverage per scale. BMP and magnesium daily Remaining orders and notations as noted Resident Activity Tracking Resident Involvement: Resident Care Provided Care Provided: Adult Hospital Medicine
[2020-01-08] MEDS ORDERED: IOVERSOL 100ml IV ONE (20:55)
[2020-01-08] MEDS ORDERED: GLUCOSE 40% GEL 15 GM TUBE PO PRN (20:59)
[2020-01-08] MEDS ORDERED: CARBOHYDRATES FOR HYPOGLYCEMIA PO PRN (20:59)
[2020-01-08] MEDS ORDERED: GLUCAGON FOR INJ 1 MG VIAL SQ PRN (20:59)
[2020-01-08] MEDS ORDERED: ACETAMINOPHEN 325 MG TAB PO PRN (20:59)
[2020-01-08] MEDS ORDERED: GLUCOSE 10 TABS/TUBE PO PRN (20:59)
[2020-01-08] MEDS ORDERED: DEXTROSE 50% 50 ML SYRINGE IV PRN (20:59)
[2020-01-08] MEDS ORDERED: LORazepam 0.5 MG TAB PO PRN (20:59)
[2020-01-08 21:34] LABS: Basophils # (auto) 0.03 K/uL (0-0.2); Basophils % (auto) 0.3 %; Eosinophils # (auto) 0.16 K/uL (0-0.5); Eosinophils % (auto) 1.6 %; Hematocrit (blood only) 22.4 % (42-52); Immature Granulocytes # (auto) 0.06 K/uL (0.00-0.02); Immature Granulocytes % (auto) 0.6 %; Lymphocytes # (auto) 1.42 K/uL (1.2-3.4); Lymphocytes % (auto) 14.4 %; Mean Corpuscular Hemoglobin 28.2 pg (25-34); Mean Corpuscular Hgb Conc 31.3 g/dL (32-36); Mean Corpuscular Volume 90.3 fL (80-100); Mean Platelet Volume 8.9 fL (7.4-10.4); Monocytes # (auto) 0.84 K/uL (0.11-0.59); Monocytes % (auto) 8.5 %; Neutrophils # (auto) 7.38 K/uL (1.4-6.5); Neutrophils % (auto) 74.6 %; Nucleated RBC # (auto) 0.05 K/uL (0-0); Nucleated RBC % (auto) 0.5 %; Platelet Count 183 K/uL (130-400); RDW Coefficient of Variation 22.5 % (11.5-14.5); Red Blood Count 2.48 M/uL (4.7-6.1); White Blood Count 9.89 K/uL (4.8-10.8)
[2020-01-08] MEDS: PANTOprazole 40 MG in DEXTROSE 5% 100 ML IV SCH (22:03)
[2020-01-08 22:26] LABS: Anisocytosis Present; Hypochromasia Present; Polychromasia 1+
[2020-01-08] MEDS: carvediloL 12.5 MG TAB PO SCH (22:46)
[2020-01-08] MEDS: VENLAFAXINE HCL XR 37.5 MG CAPXR PO SCH (22:46)
[2020-01-08] MEDS: MELATONIN 3 MG TAB PO SCH (23:09)
[2020-01-09] MEDS: INSULIN ASPART 100 UNITS/ML 3 ML PEN SC SCH ×2 (00:10→05:39)
[2020-01-09] MEDS: PANTOprazole 40 MG in DEXTROSE 5% 100 ML IV SCH ×5 (01:17→21:53)
[2020-01-09 04:37] LABS: Basophils # (auto) 0.03 K/uL (0-0.2); Basophils % (auto) 0.4 %; Eosinophils # (auto) 0.22 K/uL (0-0.5); Eosinophils % (auto) 3.1 %; Hematocrit (blood only) 22.6 % (42-52); Hemoglobin 7.2 g/dL (14.0-18.0); Immature Granulocytes # (auto) 0.04 K/uL (0.00-0.02); Immature Granulocytes % (auto) 0.6 %; Lymphocytes # (auto) 1.29 K/uL (1.2-3.4); Lymphocytes % (auto) 18.3 %; Mean Corpuscular Hemoglobin 28.6 pg (25-34); Mean Corpuscular Hgb Conc 31.9 g/dL (32-36); Mean Corpuscular Volume 89.7 fL (80-100); Mean Platelet Volume 8.9 fL (7.4-10.4); Monocytes # (auto) 0.72 K/uL (0.11-0.59); Monocytes % (auto) 10.2 %; Neutrophils # (auto) 4.76 K/uL (1.4-6.5); Neutrophils % (auto) 67.4 %; Platelet Count 139 K/uL (130-400); RDW Coefficient of Variation 20.4 % (11.5-14.5); RDW Standard Deviation 65.9 fL (36.4-46.3); Red Blood Count 2.52 M/uL (4.7-6.1); White Blood Count 7.06 K/uL (4.8-10.8)
[2020-01-09] MEDS ORDERED: SODIUM CHLORIDE 0.9% 250 ML IV PRN (05:05)
[2020-01-09 05:07] LABS: Anisocytosis Present; Polychromasia 1+
[2020-01-09 05:18] LABS: Albumin Level 2.6 gm/dl (3.4-5.0); BUN Creatinine Ratio 15.7 (10-20); Calcium 7.9 mg/dl (8.5-10.1); Creatinine Clr Calc Pharmacy 93.5 ml/min; Est GFR (African American) 105.3; Est GFR (Non-African American) 90.9; Potassium 3.6 mmol/L (3.5-5.1)
[2020-01-09 05:34] LABS: Bilirubin,Total 0.5 mg/dl (0.2-1); Globulin 2.5 gm/dl (2.5-4.0); Total Protein 5.1 gm/dl (6.4-8.2); Troponin I 0.082 ng/ml (0-0.045)
[2020-01-09 06:06] LABS: Estimated Average Glucose 91 mg/dl; Hemoglobin A1C 4.8 % (4.5-5.6)
--- NOTE | 2020-01-09 08:12 | CT Scan Report ---
CT SCAN OF THE ABDOMEN AND PELVIS WITH IV CONTRAST CLINICAL HISTORY: GI bleeding. COMPARISON STUDY: Abdominal CT dated 05/18/2019. TECHNIQUE: Following the IV administration of 93 cc of Optiray 320, CT scan of the abdomen and pelvi s is performed from the lung bases to the proximal femora. Images are reviewed in the axial, sagittal , and coronal planes. IV contrast was administered without complication. A dose lowering technique wa s utilized adhering to the principles of ALARA. CT DOSE: 1017.03 mGy.cm FINDINGS: Lung bases: The heart is mildly enlarged and without pericardial effusion. Calcific granulomas are no kristian at the lung bases. There is bibasilar scarring/atelectasis. Mild intralobular septal thickening i s noted. No airspace consolidation is seen typical for pneumonia and there is no pleural effusion. Th ere is a small hiatal hernia. Liver: The contrast-enhanced liver is mildly enlarged measuring 18.4 cm in length. The liver demonstr ates diffusely diminished attenuation consistent with hepatic steatosis. There is no intrahepatic yecenia iary ductal dilatation. The hepatic veins and portal veins are patent. Gallbladder: Unremarkable. Spleen: Normal in size and attenuation. Pancreas: Unremarkable. Adrenal glands: An 11 mm right adrenal nodule is indeterminant and unchanged from previous. The left adrenal gland is normal in appearance. Kidneys: The contrast enhanced kidneys demonstrate mild cortical atrophy and are without hydronephros is. The kidneys enhance symmetrically. There is a punctate nonobstructing calculus in the lower pole of the left kidney. Abdominal vasculature: The abdominal aorta is normal in course and caliber noting mild to moderate at herosclerotic calcification. Bowel: There is mild to moderate colonic diverticulosis without CT evidence of acute diverticulitis. No bowel obstruction is seen. A duodenal diverticulum is noted. The appendix is well-visualized and normal. Peritoneum: There is no intraperitoneal free air or abdominal ascites. There is a fat-containing umbi lical hernia. Lymphadenopathy: None. Pelvic viscera: The bladder, prostate, and seminal vesicles are normal as visualized. Skeletal structures: There is mild to moderate lumbosacral spondylosis. No lytic or blastic lesions a re seen. IMPRESSION: 1. Mild cardiac enlargement. Intralobular septal thickening at the lung bases suggests a component of congestive failure. Clinical correlation will be required. 2. Mild to moderate colonic diverticulosis without clear CT evidence of acute diverticulitis. 3. Hepatomegaly and hepatic steatosis. 4. Punctate nonobstructing left renal calculus. 5. Additional findings as above. ACT 112: Negative or not required by law. Electronically signed by: Tato Man M.D. 01/09/2020 8:11 AM
[2020-01-09] MEDS: CHOLECALCIFEROL 1,000 UNITS 25 MCG TAB PO SCH (08:32)
[2020-01-09] MEDS: FINASTERIDE 5 MG TAB PO SCH (08:32)
[2020-01-09] MEDS: carvediloL 12.5 MG TAB PO SCH ×2 (08:32→21:52)
[2020-01-09] MEDS: ATORVASTATIN 10 MG TAB PO SCH (08:32)
[2020-01-09] MEDS: VENLAFAXINE HCL XR 37.5 MG CAPXR PO SCH ×2 (08:32→21:52)
--- NOTE | 2020-01-09 08:56 | Gastroenterology Progress Note ---
Date of Service January 09, 2020 Assessment & Plan (1) Anemia: possibly from a diverticular bleed vs. other source, recent EGD and colonoscopy with no active bleeding on 01/07/20. Recs: --obtain a bleeding scan stat, if positive will consider endoscopic evaluation --supportive care, trend H/H, transfuse prn --avoid NSAIDS strictly as this is known to cause recurrent diverticular bleeding Admission and Anticipated Discharge Date Admission Date: January 08, 2020 Subjective 74 yo male here for symptomatic anemia. Denies hematochezia, hematemesis, melena. Had a colonoscopy and EGD on 01/07/20 which showed no active bleeding but did have significant diverticulosis and old blood in the colon. He has had unexplained iron deficiency anemia for some time now and has been on iron infusions and therapy. At this time he has no complaints other than feeling weak. Review of Systems Constitutional: no fever and no chills Respiratory: no cough, no dyspnea and no dyspnea on exertion Cardiovascular: no chest pain and no dyspnea Gastrointestinal: as per Subjective / HPI Psychiatric: no depression and no anxiety Physical Exam Constitutional: WD/WN, vitals as above Respiratory: normal respiratory effort, lungs clear to auscultation Cardiovascular: RRR, no murmur, no edema Gastrointestinal (Abdomen): normal bowel sounds, soft, nontender, no hepatosplenomegaly Musculoskeletal: no lower extremity edema Psychiatric: A+Ox3, euthymic affect Results & Data Results & Data ([facility]) Vital Signs (Past 12 Hours) Vital Signs Temp Pulse Pulse Resp BP BP Pulse Ox 01/09/20 08:39 36.4 C L 77 16 155/77 H 95 01/09/20 08:21 36.4 C L 79 16 155/82 H 96 01/09/20 07:41 36.6 C 75 16 138/78 96 01/09/20 07:33 36.5 C 74 16 143/85 H 94 01/09/20 07:05 36.5 C 75 16 153/82 H 95 01/09/20 06:35 36.5 C 78 20 144/76 H 95 01/09/20 06:20 36.7 C 75 20 145/73 H 95 01/09/20 06:05 36.7 C 79 20 145/77 H 78 L 01/09/20 05:50 36.8 C 76 20 125/78 94 01/09/20 05:35 36.7 C 84 20 122/65 95 01/09/20 05:29 36.7 C 87 20 129/68 95 01/09/20 04:19 36.8 C 75 18 139/73 97 01/09/20 02:12 36.8 C 82 20 124/67 94 01/09/20 02:11 36.8 C 82 20 124/67 94 01/09/20 01:45 36.7 C 85 20 115/71 93 01/09/20 01:15 36.7 C 81 20 110/66 96 01/09/20 00:45 36.8 C 75 20 112/69 95 01/09/20 00:41 77 01/09/20 00:30 36.8 C 77 20 107/68 96 01/09/20 00:15 36.7 C 78 20 113/69 95 01/09/20 00:00 36.8 C 77 20 120/71 95 01/08/20 23:56 36.8 C 77 20 111/66 94 01/08/20 21:34 92 H 01/08/20 20:59 36.5 C 85 20 168/82 H 99 PG Care Time/CCT Total # of Minutes Spent Total Time Spent with Patient: Total time spent is greater than 50% in coordination of care (as documented) at patient's floor/unit and/or counseling patient: Coding Level of Care Code 08931 Subseq Hosp Care Lvl 3 Diagnoses Anemia D64.9 Anemia type: unspecified type (1) Anemia Anemia type: unspecified type Qualified Code(s): D64.9 - Anemia, unspecified
--- NOTE | 2020-01-09 11:12 | Medical Student Progress Note ---
Date of Service January 09, 2020 Assessment & Plan (1) Acute GI bleeding: Pt 74M with pmhx of anemia, HTN, and hypertrophic cardiomyopathy presenting with dizziness and weakness in setting of acute GI bleed since starting on Xarelto in November. Anemia 2/2 GI bleed in setting of Xarelto - Admission HgB was 6.8, then 7.2 after 2units of pRBC (ER), and now 10.2 after additional 2units (floor) - CTAP: mild cardiac enlargement-intralobular septal thickening, mild-mod c olonic diverticulosis w/o clear evidence of acute diverticulitis, hepatomegaly and hepatic steatosis, and punctate nonobstructing L renal calculus - protonix gtt protocol as location of bleed is still unclear (had melena prior to 01/06 colonoscopy) - GI consulted: obtain bleeding scan test, provide supportive care, transfuse prn and avoid NSAIDS - NM bleeding scan pending - trend H/H Elevated troponin 2/2 demand ischemia in setting of anemia, pmhx of hypertrophic cardiomyopathy - trended x3, admission was 0.056 and now 0.44 - EKG: sinus rhythm with new PACs - Echo from 07/28: LV hyperdynamic with no regional wall motion abn, findings consistent with hypertrophic cardiomyopathy, EF>70% - likely his presenting sxs of weakness and dizziness + elevated troponin from i ncrease work from heart due to less RBC/oxygenation HTN - BP 167/92 - continue home med of carvedilol and hold losartan T2DM -HbA1C is 4.8 -not on any home meds, managed with diet (2) Hypertrophic cardiomyopathy: (3) Weakness: (4) Anemia: Anemia type: unspecified type Qualified Code(s): D64.9 - Anemia, unspecified (5) Near syncope: Admission and Anticipated Discharge Date Admission Date: January 08, 2020 Supervising Attestation Attending attestation Pt seen and examined in concert with Student Dr. Aviles and Dr. Grimm. In agreement with the documented findings as noted in the resident documentation with any exceptions or additions as noted here. Improved fatigue and weakness following transfusions. Still having melenotic stools. On examination, S1/S2 nl RRR no MCG. CTAB. Abd NT/ND BS+ve Acute blood loss anemia 2/2 GIB with h/o Xarelto and Plavix - s/p 4U PRBC. GI consultation appreciated. Trend H/H. Obtain tagged red cell scan. Demand ischemia - downtrending troponin Else see resident/student documentation as noted. Subjective Pt present to ER on 01/07 for dizziness and weakness found with HgB of 6.8 who was given 2 units of pRBC in ER. He has hx of anemia found on PCP routine lab with no sxs in October suspected to be iron deficiency anemia and was given 3 IV iron and transitioned to PO iron. IV site formed a clot and he was put on Xarelto in November. Chronically on plavix given h/o of endarterectomy. He had follow up with GI consult for acute bleeding with EGD and colonoscopy performed on 01/06 and Xarelto held 10 day prior. Admitted yesterday for acute GI bleed and on telemetry for hx of hypertrophic cardiomyopathy with elevated troponin in ER of 0.049. Subjectively he is doing well with no overnight event. No abdominal pain, melena or bowel movement (only had 1 meal after EGD/colonoscopy on 01/06), hematemesis, or hematuria. He gets dizzy from sitting to standing and has MANDUJANO if walking >football field length. No edema, PND, palpitations, or chest pain. He reports his BP at home is usually high around 150s/90s, checks with home cuff. Shx: drinks gin/daily, never smoker. Review of Systems Constitutional: + fatigue; no fever and no weakness Eyes: + corrective lenses; no eye pain and no spots in vision Ear, Nose, Mouth, Throat: no ear pain, no hearing loss and no nasal discharge Respiratory: no cough, no hemoptysis and no wheezing Cardiovascular: + lightheadedness (orthostatic hypotension when getting up suddenly); no chest pain, no paroxysmal nocturnal dyspnea, no palpitations and no edema Gastrointestinal: as per Subjective / HPI Genitourinary: + difficulty urinating (hx of BPH ); no dysuria Musculoskeletal: + back pain (chronic, hx of injury years ago) Integumentary: no rash and no erythema Physical Exam Constitutional: + obese, cooperative and comfortable Respiratory: normal respiratory effort, lungs clear to auscultation Cardiovascular: Rate/Rhythm: regular rate and regular rhythm Heart Sounds: normal, physiologic split S2 and + murmur (chronic, 2/6 systolic ejection murmur) Vessels: no carotid bruit Extremities: no calf tenderness and no edema Gastrointestinal (Abdomen): Inspection/Auscultation: abdomen normal to inspection and + hypoactive bowel sounds Percussion/Palpation: abdomen soft; abdomen nontender Musculoskeletal: no cyanosis or clubbing, extremities motor strength 5/5 Neurologic: patellar DTR's 2+ bilat, sensation intact Psychiatric: A+Ox3, euthymic affect Results & Data ([facility]) Vital Signs (Past 12 Hours) Vital Signs Temp Pulse Pulse Resp BP BP Pulse Ox 01/09/20 09:41 36.6 C 71 16 152/76 H 94 01/09/20 09:11 36.7 C 80 16 156/79 H 96 01/09/20 08:56 36.4 C L 80 16 174/85 H 95 01/09/20 08:39 36.4 C L 77 16 155/77 H 95 01/09/20 08:21 36.4 C L 79 16 155/82 H 96 01/09/20 07:41 36.6 C 75 16 138/78 96 01/09/20 07:33 36.5 C 74 16 143/85 H 94 01/09/20 07:05 36.5 C 75 16 153/82 H 95 01/09/20 06:35 36.5 C 78 20 144/76 H 95 01/09/20 06:20 36.7 C 75 20 145/73 H 95 01/09/20 06:05 36.7 C 79 20 145/77 H 78 L 01/09/20 05:50 36.8 C 76 20 125/78 94 01/09/20 05:35 36.7 C 84 20 122/65 95 01/09/20 05:29 36.7 C 87 20 129/68 95 01/09/20 04:19 36.8 C 75 18 139/73 97 01/09/20 02:12 36.8 C 82 20 124/67 94 01/09/20 02:11 36.8 C 82 20 124/67 94 01/09/20 01:45 36.7 C 85 20 115/71 93 01/09/20 01:15 36.7 C 81 20 110/66 96 01/09/20 00:45 36.8 C 75 20 112/69 95 01/09/20 00:41 77 01/09/20 00:30 36.8 C 77 20 107/68 96 01/09/20 00:15 36.7 C 78 20 113/69 95 01/09/20 00:00 36.8 C 77 20 120/71 95 01/08/20 23:56 36.8 C 77 20 111/66 94
[2020-01-09 12:13] LABS: Appearance Urine Clear (Clear); Bilirubin Urine Negative (Negative); Blood Urine Negative (Negative); Color Urine Yellow; Glucose Urine UA Negative (Negative); Ketones Urine Negative (Negative); Leukocyte Esterase Urine Negative (Negative); Nitrite Urine Negative (Negative); Protein Urine Negative (Negative); Specific Gravity Urine 1.038 (1.000-1.030); Urobilinogen Urine Negative (Negative)
[2020-01-09 13:10] LABS: Hemoglobin 10.2 g/dL (14.0-18.0)
[2020-01-09 17:07] LABS: Hematocrit (blood only) 31.8 % (42-52); Hemoglobin 10.4 g/dL (14.0-18.0)
--- NOTE | 2020-01-09 20:47 | XCELERA ---
[id number]
--- NOTE | 2020-01-09 22:07 | Billing Data ---
Date of Service January 09, 2020 Coding Level of Care Code 72719 Initial Inpt Care Lvl 3
[2020-01-09] MEDS: MELATONIN 3 MG TAB PO SCH (22:23)
[2020-01-10] MEDS: PANTOprazole 40 MG in DEXTROSE 5% 100 ML IV SCH ×2 (02:31→07:43)
--- NOTE | 2020-01-10 05:55 | Electrocardiogram Report ---
Test Reason : Blood Pressure : / mmHG Vent. Rate : 084 BPM Atrial Rate : 084 BPM P-R Int : 160 ms QRS Dur : 100 ms QT Int : 418 ms P-R-T Axes : 063 018 202 degrees QTc Int : 493 ms Sinus rhythm with Premature atrial complexes Cannot rule out Anterior infarct , age undetermined Abnormal ECG When compared with ECG of 18-MAY-2019 03:33, Premature atrial complexes are now Present QT has lengthened Confirmed by Anoop Sue ([id number]) on 01/10/2020 5:55:32 AM Referred By: REFERRED SELF Confirmed By:Anoop Sue
[2020-01-10 07:06] LABS: Mean Corpuscular Hemoglobin 29.2 pg (25-34); Mean Corpuscular Hgb Conc 33.3 g/dL (32-36); Mean Corpuscular Volume 87.5 fL (80-100); Mean Platelet Volume 9.1 fL (7.4-10.4); Nucleated RBC # (auto) 0.03 K/uL (0-0); Nucleated RBC % (auto) 0.4 %; Platelet Count 138 K/uL (130-400); RDW Coefficient of Variation 18.2 % (11.5-14.5); RDW Standard Deviation 57.1 fL (36.4-46.3); Red Blood Count 3.43 M/uL (4.7-6.1); White Blood Count 7.99 K/uL (4.8-10.8)
--- NOTE | 2020-01-10 07:33 | Nuclear Medicine Report ---
NM GI bleeding CLINICAL HISTORY: GI bleed COMPARISON STUDY: No previous studies for comparison. FINDINGS: This examination is performed following the administration of 25 mCi technetium 99m UltraTa g. Initial dynamic flow images appear unremarkable. Static images obtained in 5 minute increments through 60 minutes show slow accumulation of isotope wi thin the rectal region. There is normal activity within the abdominal and pelvic vasculature as well as urinary tracts and bladder. IMPRESSION: Low level bleeding focus within the rectal region. ACT 112: Negative or not required by law. The above report was generated using voice recognition software. It may contain grammatical, syntax or spelling errors. Electronically signed by: Ben Mendez M.D. 01/10/2020 7:32 AM
[2020-01-10] MEDS: VENLAFAXINE HCL XR 37.5 MG CAPXR PO SCH ×2 (07:43→20:38)
[2020-01-10] MEDS: carvediloL 12.5 MG TAB PO SCH ×2 (07:43→20:38)
[2020-01-10] MEDS: ATORVASTATIN 10 MG TAB PO SCH (07:43)
[2020-01-10] MEDS: CHOLECALCIFEROL 1,000 UNITS 25 MCG TAB PO SCH (07:43)
[2020-01-10] MEDS: FINASTERIDE 5 MG TAB PO SCH (07:43)
[2020-01-10] MEDS ORDERED: SOD PHOSPHATE/SOD BIPHOSPHATE ENEMA 132 ML BTL PR STA (09:36)
[2020-01-10] MEDS ORDERED: SOD PHOSPHATE/SOD BIPHOSPHATE ENEMA 132 ML BTL PR ONE (09:39)
--- NOTE | 2020-01-10 09:46 | Gastroenterology Progress Note ---
Date of Service January 10, 2020 Assessment & Plan (1) Acute GI bleeding: -2 fleet enemas -Keep NPO -Flex sig this afternoon for further evaluation -Okay to convert PPI gtt to BID dosing as findings are suspicious for a lower GI bleed rather than an upper GI bleed. If you should have any further questions or concerns, call extension [phone] or [phone]. Admission and Anticipated Discharge Date Admission Date: January 08, 2020 Subjective Patient is a 74 yo male hospitalized with anemia & rectal bleeding after a colonoscopy on 01/07/20. He underwent a GI bleeding scan on 01/09/20 that indicated a low level focus of bleeding in the rectum. His H/H is currently 10/30. He is agreeable to further evaluation with flexible sigmoidoscopy. He denies further complaints. Review of Systems Constitutional: no fever and no chills Respiratory: no cough and no dyspnea Cardiovascular: no chest pain Gastrointestinal: rectal bleeding Physical Exam Constitutional: WD/WN, vitals as above Respiratory: normal respiratory effort Cardiovascular: Extremities: no edema Gastrointestinal (Abdomen): Inspection/Auscultation: abdomen normal to inspection Psychiatric: A+Ox3, euthymic affect Results & Data Results & Data ([facility]) Vital Signs (Past 12 Hours) Vital Signs Temp Pulse Pulse Resp BP Pulse Ox 01/10/20 07:40 37.2 C 75 18 166/104 H 92 01/10/20 03:05 36.8 C 71 18 153/77 H 94 01/09/20 23:16 36.7 C 72 18 155/82 H 95 PG Care Time/CCT Total # of Minutes Spent Total Time Spent with Patient: Total time spent is greater than 50% in coordination of care (as documented) at patient's floor/unit and/or counseling patient: Coding Level of Care Code 81940 Subseq Hosp Care Lvl 2 Diagnoses Acute GI bleeding K92.2
--- NOTE | 2020-01-10 10:07 | Anesthesiology Consultation ---
Date of Service January 10, 2020 Assessment & Plan (1) Encounter for pre-operative examination: History Surgery Operation Date: 01/10/20 08:00 Proposed Procedures p Flexible Sigmoidoscopy Dr. Sarah Smith MD Height/Weight Height: 5 ft 6 in Weight: 93.6 kg Allergies Allergy/AdvReac Type Severity Reaction Status Date / Time No Known Allergies Allergy Verified 01/08/20 20:31 Medications Home Medications Medication Instructions Recorded Confirmed Last Taken melatonin 3 mg capsule 3 mg PO HS 01/10/19 01/08/20 01/07/20 01:00 omeprazole 40 mg capsule,delayed 40 mg PO BID cap 01/10/19 01/08/20 01/08/20 release AM DOSE allopurinol [Zyloprim] 300 mg PO QAM 11/20/19 01/08/20 01/08/20 lorazepam [Ativan] 0.5 - 1 mg PO DAILY PRN 11/25/19 01/08/20 01/07/20 01:00 Multivitamin 50 Plus 1 tab PO QAM 01/02/20 01/08/20 01/08/20 atorvastatin 10 mg PO QAM 01/02/20 01/08/20 01/08/20 carvedilol 12.5 mg PO BID 01/02/20 01/08/20 01/06/20 22:00 cholecalciferol (vitamin D3) 25 mcg PO QAM 01/02/20 01/08/20 01/08/20 [Vitamin D3] clopidogrel 75 mg PO QAM 01/02/20 01/08/20 01/08/20 finasteride 5 mg PO QAM 01/02/20 01/08/20 01/08/20 losartan 25 mg PO QPM 01/02/20 01/08/20 01/07/20 saw palmetto 400 mg PO QAM 01/02/20 01/08/20 01/08/20 tamsulosin 0.4 mg PO HS 01/08/20 01/08/20 01/07/20 ursodiol 500 mg PO HS 01/08/20 01/08/20 01/07/20 venlafaxine 75 mg PO QAM 01/08/20 01/08/20 01/08/20 Active Medications Generic Name Dose Route Start Last Admin Trade Name Freq PRN Reason Stop Dose Admin Atorvastatin Calcium 10 mg 01/09/20 09:00 01/10/20 07:43 Atorvastatin 10 Mg Tab PO 02/08/20 08:59 10 mg QAM AKILAH Administration Carvedilol 12.5 mg 01/08/20 21:00 01/10/20 07:43 Carvedilol 12.5 Mg Tab PO 02/07/20 20:59 12.5 mg BID AKILAH Administration Finasteride 5 mg 01/09/20 09:00 01/10/20 07:43 Finasteride 5 Mg Tab PO 02/08/20 08:59 5 mg QAM AKILAH Administration Melatonin 3 mg 01/08/20 21:00 01/09/20 22:23 Melatonin 3 Mg Tab PO 02/07/20 20:59 3 mg HS AKILAH Administration Venlafaxine HCl 37.5 mg 01/08/20 21:00 01/10/20 07:43 Venlafaxine Hcl Xr 37.5 Mg Capxr PO 02/07/20 20:59 37.5 mg BID AKILAH Administration Vitamin D 1,000 units 01/09/20 09:00 01/10/20 07:43 Cholecalciferol 1,000 Units 25 Mcg Tab PO 02/08/20 08:59 1,000 units QAM AKILAH Administration Past Medical History Medical History Anemia IRON INFUSIONS X 2-11/2019 Anxiety Cardiac murmur FOR YRS-F/U DR REDDY Depression Diabetes mellitus, type 2 DIET MANAGED Enlarged prostate GERD (gastroesophageal reflux disease) UNDER CONTROL Hiatal hernia High cholesterol Hypertension Kidney stones SOBOE (shortness of breath on exertion) INACTIVE Past Family History Family History Father Liver cancer Past Surgical History Surgical History H/O carotid endarterectomy R/L History of colonoscopy X 2-3 Hx of tonsillectomy Social History Smoking Status: Unknown if ever smoked Hx Alcohol Use: No Alcohol type: hard liquor alcohol intake frequency: 0-2 drinks per day Hx Substance Use: No Physical Exam Vital Signs Last Vital Signs Temp 37.2 C 01/10/20 07:40 Pulse 75 01/10/20 07:40 Resp 18 01/10/20 07:40 BP 166/104 H 01/10/20 07:40 Pulse Ox 92 01/10/20 07:40 Testing Laboratory Results 01/10/20 06:44 01/09/20 04:11 PT 10.3 Seconds (9.0-12.0) 01/08/20 18:20 INR 1.0 (0.9-1.1) 01/08/20 18:20 APTT 21.7 Seconds (21.0-31.0) 01/08/20 18:20 Hemoglobin A1c 4.8 % (4.5-5.6) 01/09/20 04:11 Urine Color Yellow 01/09/20 11:05 Urine Appearance Clear (Clear) 01/09/20 11:05 Urine pH 5.0 (4.5-7.5) 01/09/20 11:05 Ur Specific [place] 1.038 (1.000-1.030) H 01/09/20 11:05 Urine Protein Negative (Negative) 01/09/20 11:05 Urine Glucose (UA) Negative (Negative) 01/09/20 11:05 Urine Ketones Negative (Negative) 01/09/20 11:05 Urine Nitrite Negative (Negative) 01/09/20 11:05 Ur Leukocyte Esterase Negative (Negative) 01/09/20 11:05 Blood Type O Positive 01/08/20 18:49 Antibody Screen NEGATIVE 01/08/20 18:49 Electrocardiogram Date: 01/08/20 Abnormal ECG When compared with ECG of 18-MAY-2019 03:33, Premature atrial complexes are now Present QT has lengthened Confirmed by Anoop Sue ([id number]) on 01/10/2020 5:55:32 AM Echocardiogram EF: >70% Other Findings: + LVH (Severe concentric LVH) Valvular Disease: + MR (moderate) moderate pulmonary hypertension
--- NOTE | 2020-01-10 10:27 | Medical Student Progress Note ---
Date of Service January 10, 2020 Assessment & Plan (1) Acute GI bleeding: Pt 74M with pmhx of anemia, HTN, and hypertrophic cardiomyopathy presenting with dizziness and weakness in setting of acute GI bleed with h/o of Xarelto and Plavix use. Anemia 2/2 GI bleed with h/o of Xarelto and Plavix - Admission HgB was 6.8, today 10.0 s/p 4U pRBC - CTAP: mild cardiac enlargement-intralobular septal thickening, mild-mod colonic diverticulosis w/o clear evidence of acute diverticulitis, hepatomegaly and hepatic steatosis, and punctate nonobstructing L renal calculus - trending H/H - NM bleeding scan: low level bleeding in rectal region - per GI: flexible sigmoidoscopy scheduled for afternoon with 2 fleet of enemas - switch Protonix gtt to PO BID as suspicion higher for lower>upper GI bleed - keep NPO Elevated troponin 2/2 demand ischemia in setting of anemia, pmhx of hypertrophic cardiomyopathy - trended x3, admission was 0.056 and now 0.44 - EKG: sinus rhythm with new PACs - 01/08 Echo: normal LV size EF>70%. Severe concentric LVH, moderate LA dilation, moderate MR, and moderate pulmonary HTN. - likely his presenting sxs of weakness and dizziness + elevated troponin from increase work from heart due to less RBC/oxygenation, currently asymptomatic HTN - BP 166/104 - continue home med of carvedilol and hold losartan T2DM -HbA1C is 4.8 -not on any home meds, managed with diet HLD - continue atorvastatin BPH - continue finasteride (2) Hypertrophic cardiomyopathy: (3) Weakness: (4) Anemia: Anemia type: unspecified type Qualified Code(s): D64.9 - Anemia, unspecified (5) Near syncope: Admission and Anticipated Discharge Date Admission Date: January 08, 2020 Supervising Attestation I also saw the patient with the resident physician and confirmed barreto portions of the history and physical examination. I also discussed the case with the gastroenterology it architecture consultant. I agree with the impression and plan as noted above. Anemia 2/2 GI bleed with h/o of Xarelto and Plavix While the tagged red blood cell scan suggested low level bleeding focus within the rectal region, sigmoidoscopy performed today was rather unremarkable Patient will need push enteroscopy to further evaluate source of bleeding. Will resume diet this evening and advance if tolerated If hemoglobin stable and tolerating diet should be ready for discharge in a.m. Elevated troponin 2/2 demand ischemia in setting of anemia, pmhx of hypertrophic cardiomyopathy Acute diastolic (congestive) heart failure Echocardiogram demonstrates normal LV size EF>70%, Severe concentric LVH, moderate LA dilation, moderate MR, and moderate pulmonary HTN. Symptoms have improved Continue telemetry, monitor I's and O's, daily weights; cautious with IV hydration given above Subjective No overnight event. Pt doing fine with no significant changes from yesterday. Recieved a total of 4U pRCB. No melena or BM (NPO since Monday), hematemesis, hematuria, abd pain, N/V, CP, palpitations, and edema. Some mild bloating. Review of Systems Constitutional: + fatigue; no fever and no weakness No dizziness or lig htheadedness Eyes: + corrective lenses; no eye pain and no spots in vision Cardiovascular: + lightheadedness (orthostatic hypotension when getting up suddenly); no chest pain, no paroxysmal nocturnal dyspnea, no palpitations and no edema Gastrointestinal: as per Subjective / HPI and + bloating; no vomiting and no melena Genitourinary: + difficulty urinating (hx of BPH ); no dysuria Musculoskeletal: + back pain (chronic, hx of injury years ago) Physical Exam 2 Constitutional: + obese, cooperative and comfortable Eyes: PERRL, conjunctivae normal, anicteric sclerae Respiratory: normal respiratory effort, lungs clear to auscultation Cardiovascular: Rate/Rhythm: regular rate and regular rhythm Heart Sounds: normal, physiologic split S2 and + murmur (chronic, 2/6 systolic ejection murmur) Vessels: no carotid bruit Extremities: no calf tenderness and no edema Gastrointestinal (Abdomen): Inspection/Auscultation: abdomen normal to inspection and + hypoactive bowel sounds Percussion/Palpation: abdomen soft; abdomen nontender Musculoskeletal: no cyanosis or clubbing, extremities motor strength 5/5 Neurologic: patellar DTR's 2+ bilat, sensation intact Psychiatric: A+Ox3, euthymic affect Results & Data ([facility]) Vital Signs (Past 12 Hours) Vital Signs Temp Pulse Pulse Resp BP Pulse Ox 01/10/20 07:40 37.2 C 75 18 166/104 H 92 01/10/20 03:05 36.8 C 71 18 153/77 H 94 01/09/20 23:16 36.7 C 72 18 155/82 H 95
[2020-01-10] MEDS ORDERED: LIDOCAINE HCL 2% 2 ML VIAL/AMP(20MG/ML) INFIL ONE (14:51)
[2020-01-10] MEDS ORDERED: PROPOFOL IV EMULSION 10 MG/ML 20 ML VIAL IV ONE (14:51)
--- NOTE | 2020-01-10 15:22 | Anesthesiology Progress Note ---
Date of Service January 10, 2020 Anesthesia Post Procedure Vital Signs Vital Signs: Temp Pulse Pulse Pulse Resp BP Pulse Ox 01/10/20 15:14 76 16 126/62 95 01/10/20 14:33 37.3 C 80 18 190/89 H 95 01/10/20 11:20 37.0 C 77 18 162/79 H 95 01/10/20 07:40 37.2 C 75 18 166/104 H 92 01/10/20 03:05 36.8 C 71 18 153/77 H 94 01/09/20 23:16 36.7 C 72 18 155/82 H 95 01/09/20 20:45 37.5 C 82 17 193/82 H 93 01/09/20 19:49 36.6 C 74 18 181/76 H 95 01/09/20 15:41 37.8 C H 71 18 163/84 H 95 Transfer of Care Handoff Completed per policy Notes Mental Status: alert / awake / arousable and participated in evaluation Patient Amnestic to Procedure: Yes Nausea / Vomiting: adequately controlled Pain: adequately controlled Airway Patency, RR, SpO2: stable & adequate BP & HR: stable & adequate Hydration State: stable & adequate Anesthetic Complications: no major complications apparent and Pt Satisfied with anesthetic care
--- NOTE | 2020-01-10 15:23 | Procedure Note ---
Procedure Note Date of Service January 10, 2020 GI procedure note colonoscopy no evidence of active bleeding nor melena in the entire examined colon. small polyp removed, clipped after removal. hemorrhoids, diverticulosis also noted. Recs: --advance diet as tolerated --supportive care --will need a push enteroscopy as an outpatient --decrease protonix to once daily Dhiraj Smith MD Gastroenterology Coding
--- NOTE | 2020-01-10 15:24 | GI REPORT ---
Patient Name: Ronni Matt Procedure Date: 01/10/2020 2:36 PM Date of : 1945 Admit Type: Inpatient Age: 74 Gender: Male Attending MD: Dhiraj Smith MD Procedure: Colonoscopy Providers: Dhiraj Smith MD Referring MD: Donaldo Scales Indications: Unexplained iron deficiency anemia Medicines: Monitored Anesthesia Care Complications: No immediate complications. Estimated blood loss: None. Estimated Blood Loss: Estimated blood loss: none. Procedure: Pre-Anesthesia Assessment: - Prior Anticoagulants: The patient has taken no previous anticoagulant or antiplatelet agents. - ASA Grade Assessment: III - A patient with severe systemic disease. After I obtained informed consent, the scope was passed under direct vision. Throughout the procedure, the patient's blood pressure, pulse, and oxygen saturations were monitored continuously. The Colonoscope was introduced through the anus and advanced to the cecum, identified by appendiceal orifice and ileocecal valve. After I obtained informed consent, the scope was passed under direct vision. Throughout the procedure, the patient's blood pressure, pulse, and oxygen saturations were monitored continuously.The colonoscopy was performed without difficulty. The patient tolerated the procedure well. The quality of the bowel preparation was good except the ascending colon was poor. Findings: Multiple small and large-mouthed diverticula were found in the descending colon, transverse colon and ascending colon. Non-bleeding internal hemorrhoids were found during retroflexion. The hemorrhoids were medium-sized. A 4 mm polyp was found in the ascending colon. The polyp was sessile. The polyp was removed with a cold biopsy forceps. Resection and retrieval were complete. To prevent bleeding after the polypectomy, one hemostatic clip was successfully placed. There was no bleeding at the end of the procedure. No evidence of active bleeding nor melena in the entire examined colon. Impression: - Diverticulosis in the descending colon, in the transverse colon and in the ascending colon. - Non-bleeding internal hemorrhoids. - One 4 mm polyp in the ascending colon, removed with a cold biopsy forceps. Resected and retrieved. Clip was placed. -suspect a small bowel source for his obscure anemia Recommendation: - [facility]. - Advance diet as tolerated today. - Await pathology results. -will plan for push enteroscopy to further evaluate as an outpatient -can reduce PPI to daily -rest as per primary team Dhiraj Smith MD 01/10/2020 3:24:03 PM This report has been signed electronically. Note Initiated On: 01/10/2020 2:36 PM Number of Addenda: 0 I attest to the content of the Intraoperative Record and orders documented therein, exceptions below {[id number]}
[2020-01-10] MEDS: MELATONIN 3 MG TAB PO SCH (20:41)
[2020-01-11] MEDS: VENLAFAXINE HCL XR 37.5 MG CAPXR PO SCH (07:45)
[2020-01-11] MEDS: ATORVASTATIN 10 MG TAB PO SCH (07:46)
[2020-01-11] MEDS: CHOLECALCIFEROL 1,000 UNITS 25 MCG TAB PO SCH (07:46)
[2020-01-11] MEDS: FINASTERIDE 5 MG TAB PO SCH (07:46)
[2020-01-11] MEDS: carvediloL 12.5 MG TAB PO SCH (07:46)
[2020-01-11 08:24] LABS: Hemoglobin 10.5 g/dL (14.0-18.0)
[2020-01-11] MEDS ORDERED: PANTOprazole 40 MG TAB PO SCH (09:00)
--- NOTE | 2020-01-11 13:03 | Discharge Summary ---
Date of Service January 11, 2020 Admission HPI Per Admitting Provider Ronni Matt is a 74yo M 2/2 GI kiige5hn M with a PMHx of anemia, GI bleed, HTN, HLD, T2DM, diverticulosis, and recent echo with EF > 70% and findings consistent with hyptrophic ardiomypoathy who presents with sudden weakness and fatigue with a Hgb drop from last nornaml ~3 weeks ago of 13 to 6.8. Reports that he recently underwent a EGD/colonoscopy for GI bleeding and anemia which showed blood in the intestines, and 2 polyps which were removed. He did not have any active bleeding at time of the EGD/[place]. He reports that he had had anemia in the month prior and had received 3 iron transfusions before being placed on oral iron. He developed a blood clot while taking IV iron, and was placed on apixaban. He was started on a Doac about November 26, and stopped taking it approximately 10 days ago. He reports his bowel movements have regularly been black, is not sure if this is from bleeding or from taking oral iron. Is not previously had shortness of breath, until the day of admission when he suddenly felt very weak and dizzy and 'wifty'. he reprots bilateral neck and clavicle pain which has NOT chagned in the last several months. Otherwise denies chest pain and shrotness of breath. He notes his home BP cuff could not read his blood pressure. No nausea, vomtiing. No focal weakness, but feels globally exhausted. Medical history: Reviewed Surgical history: Reviewed Medications: Reviewed Allergies: Reviewed Social: Endorses daily alcohol use of about 1-2 drinks, no alcohol in the last 2 weeks. Denies withdrawal, tremors or past seizures. Denies current or former tobacco use. Denies current former recreational drug use. Full code. Lives at home with his was present at bedside. Principal Diagnosis GI bleed Discharge Exam Constitutional + obese Eyes PERRL, conjunctivae normal, anicteric sclerae ENMT external ear and nose normal, oropharynx normal Respiratory normal respiratory effort, lungs clear to auscultation Cardiovascular Rate/Rhythm: regular rate and regular rhythm Heart Sounds: + murmur (Systolic) Gastrointestinal (Abdomen) normal bowel sounds, soft, nontender, no hepatosplenomegaly Skin no rashes, warm and dry Psychiatric A+Ox3, euthymic affect Discharge Data Allergies Allergy/AdvReac Type Severity Reaction Status Date / Time No Known Allergies Allergy Verified 01/08/20 20:31 Consultations 01/08/20 19:18 ED Decision to Admit Stat 01/08/20 20:33 Consult Gastroenterology Routine 01/11/20 05:26 Consult [facility] cardiovascular tech Routine Procedures Performed Operation Date: 01/10/20 08:00 Actual Procedures p Colonoscopy Polypectomy - Dhiraj Smith MD Ordered Studies 01/08/20 19:57 CT abd pelvis IV con only Stat Hospital Course (1) Anemia: Ronni Matt is a 74yo M 2/2 GI bleed 4 yrs ago with a PMHx of anemia, GI bleed, HTN, HLD, T2DM, diverticulosis, and recent echo with EF > 70% and findings consistent with hypertrophic cardiomypoathy who presents with sudden weakness and fatigue with a Hgb drop from last normal ~3 weeks ago of 13 to 6.8. The following was the medical management during stay here: Anemia 2/2 GI bleed with h/o of Xarelto and Plavix -Patient has since stopped Xarelto. Was on Xarelto daily for 45 days 2/2 superficial thrombophlebitis, seen in ED November 25, 2019. Plavix was held this admission, we will continue to hold given likely push enteroscopy in near future as noted below. If this not happening in near future, then may restart per PCP discretion - Admission HgB was 6.8, s/p 4U pRBC Hemoglobin 10.5 on day of discharge - CTAP: mild cardiac enlargement-intralobular septal thickening, mild-mod colonic diverticulosis w/o clear evidence of acute diverticulitis, hepatomegaly and hepatic steatosis, and punctate nonobstructing L renal calculus - NM bleeding scan: low level bleeding in rectal region - Flexible sigmoidoscopy: Diverticulosis in the descending colon, in the transverse colon and in the ascending colon. Non-bleeding internal hemorrhoids. One 4 mm polyp in the ascending colon, removed with a cold biopsy forceps. Resected and retrieved. Clip was placed. Suspect a small bowel source for his obscure anemia -GI will will plan for push enteroscopy to further evaluate as an outpatient. -Patient will be discharged on p.o. Protonix 40 mg once daily -Patient initially kept n.p.o. Was later transitioned to full liquid diet and then regular diet and patient tolerated diet well Elevated troponin 2/2 demand ischemia in setting of anemia, pmhx of hypertrophic cardiomyopathy - trended x3, admission was 0.056 and then 0.44 - EKG: sinus rhythm with new PACs - 01/08 Echo: normal LV size EF>70%. Severe concentric LVH, moderate LA dilation, moderate MR, and moderate pulmonary HTN. - likely his presenting sxs of weakness and dizziness + elevated troponin from increase work from heart due to less RBC/oxygenation, currently asymptomatic HTN -Stable this admission - continue home med of carvedilol and held losartan, but this will be restarted on discharge T2DM -HbA1C is 4.8 -not on any home meds, managed with diet HLD - continue atorvastatin BPH - continue finasteride DVT Prophylaxis: SCDs. Pharmo contraindicated. On day of discharge patient with no other acute concerns or complaints. Total Time Total Time Spent Total Time Spent (In Minutes): 30 minutes -this included reviewing chart, examination, and discussion with the patient and family at bedside. Discharge Plan Discharge Items Patient Disposition: Home - Self-Care Reason For Visit: ACUTE GIB Discharge Diagnosis: GI bleed Condition on Discharge: Fair Activity: Per Instructions section Non-emergency contact: Primary Care Provider Call non-emergency contact if: you have any medication questions and your symptoms worsen Follow-up/Referrals: Luc Fajardo MD [Primary Care Provider] - Diet: Regular Addtl Attending Provider Instructions: You were admitted for concerns of dizziness and weakness and were found to have low blood counts that were likely secondary to GI bleed. We suspect that this was a small bowel source. Your blood counts are stable on discharge. Please fo llow the below instructions on discharge: Please follow-up with your PCP within 1 week of discharge We will make an appointment with GI for you. They plan on doing a push enteroscopy to further evaluate your GI bleeding source You will start daily Protonix 40 mg. This has been sent to [facility] pharmacy We will hold your Plavix in anticipation for having a push enteroscopy as above in the near future. You can discuss this further with your PCP at your visit if this needs to be restarted sooner if your scheduled enteroscopy is at a later date and anticipated Continue your normal diet as tolerated Pending Studies at Discharge: Yes Stand-Alone Forms: [facility], Smoking Cessation Medications and DC Order Prescriptions: New pantoprazole [Protonix] 40 mg tablet,delayed release (DR/EC) 40 mg PO DAILY Qty: 30 RF: 0 Continued melatonin 3 mg capsule 3 mg PO HS RF: 0 omeprazole 40 mg capsule,delayed release(DR/EC) 40 mg PO BID RF: 0 carvedilol 25 mg tablet 12.5 mg PO BID RF: 0 atorvastatin 10 mg tablet 10 mg PO QAM RF: 0 losartan 25 mg tablet 25 mg PO QPM RF: 0 finasteride 5 mg tablet 5 mg PO QAM RF: 0 saw palmetto 500 mg Capsule 400 mg PO QAM RF: 0 Multivitamin 50 Plus Tablet 1 tab PO QAM RF: 0 cholecalciferol (vitamin D3) [Vitamin D3] 25 mcg (1,000 unit) Tablet 25 mcg PO QAM RF: 0 venlafaxine 75 mg capsule,extended release 24hr 75 mg PO QAM RF: 0 tamsulosin 0.4 mg capsule 0.4 mg PO HS RF: 0 ursodiol 500 mg tablet 500 mg PO HS RF: 0 allopurinol [Zyloprim] 300 mg tablet 300 mg PO QAM RF: 0 lorazepam [Ativan] 0.5 mg tablet 0.5 - 1 mg PO DAILY PRN (Reason: Anxiety) RF: 0 Discontinued clopidogrel 75 mg tablet 75 mg PO QAM RF: 0 Discharge Orders: Discharge Order (Routine); Ordered 01/11/20 Ordered By: Elton Fairchild Admission Data Admit Date/Time: 01/08/20 20:13 Attending Provider: Donaldo Scales Admit Provider: Víctor Coello Primary Care Provider: Luc Fajardo Other Providers: Jaime Murray ; Cole Womack Other Interventions: Discharge Summary Assessment (RN) Last Done: 01/11/20 13:13 Supervising Physician Co-Signing Physician Notes I also saw the patient concurrent the resident physician and confirmed barreto portions of the history and physical examination. I agree with the impression and plan as noted in the resident discharge summary. Fortunately patient's hemoglobin this morning is improved. Also he has tolerated both dinner last night and breakfast this morning without symptoms. Anemia secondary to gastrointestinal bleed, in setting of Xarelto and Plavix It seems that the patient's symptoms started shortly after he was placed on Xarelto for a superficial thrombophlebitis. This course has now been completed. Plavix was hold during this admission and will continue to hold pending his push enteroscopy. Reviewed all test and lab findings with the patient and his ; they understand the need for continued follow-up with gastroenterology as an outpatient to pursue a more definitive diagnosis. Resident Activity Tracking Resident Involvement: Resident Care Provided Care Provided: Adult [facility]
[2020-01-11] MEDS ORDERED: LOSARTAN POTASSIUM 25 MG TAB PO SCH (21:00)
== END 2020-01-11 13:35 | disposition home or self-care (01) | DRG 377 ==
LOC: ED 16:50 → SUATTDRO 20:13 → 2S 20:13